=== PATIENT | female | born 1975 | race African-American/Black ===

== ENCOUNTER 2016-10-27 17:08 | Emergency (ER) | payer MEDICAID ==
[~2016-10-27] VITALS: Ht 165.1 cm; Wt 136.1 kg
[~2016-10-27 17:08] MED LIST: AMOX500C2 PO; CEFP500T4 PO; CEPH500C PO; CHLO473M4 MM; CLIN150C17 PO; HYDR-757 PO; IBP800T PO; TRM50T PO
[2016-10-27] MEDS ORDERED: BLOOD PRESSURE (17:37)
[2016-10-27] MEDS ORDERED: amLODIPine 5 MG (NORVASC) TAB PO ONE (18:15)
[2016-10-27] MEDS ORDERED: HYDROCHLOROTHIAZIDE 25 MG (HCTZ) TAB PO ONE (18:15)
--- NOTE | 2016-10-27 18:19 | Diagnostic Imaging Report ---
Indication: Right-sided facial droop and numbness, right-sided body numbness for 4 days. Comparison: None. Technique: Routine head CT was performed without contrast. Discussion: No intracranial hemorrhage, mass, midline shift, or hydrocephalus. The ventricles and sulci are normal size and configuration for age. The visualized orbits, paranasal sinuses, mastoid air cells, and calvarium are unremarkable. Impression: 1. Negative head CT. Dictated by: Dictated on workstation # [id number]
[2016-10-27 18:32] VITALS: BP 139/94
[2016-10-27 18:33] LABS: BASOPHILS % (AUTO) 0 % (0-10); EOSINOPHILS # (AUTO) 0.2 10^3/uL (0.0-0.3); EOSINOPHILS % (AUTO) 2 % (0-10); LYMPHOCYTES % (AUTO) 47 % (12-44); MEAN CORPUSCULAR HEMOGLOBIN 30 PG (25-34); MEAN CORPUSCULAR HGB CONC 34 G/DL (32-36); MEAN CORPUSCULAR VOLUME 89 FL (80-99); MONOCYTES # (AUTO) 0.5 X 10^3 (0.0-1.0); MONOCYTES % (AUTO) 4 % (0-12); NEUTROPHILS # (AUTO) 4.9 X 10^3 (1.8-7.8); NEUTROPHILS % (AUTO) 46 % (42-75); PLATELET COUNT 300 10^3/uL (130-400); RED BLOOD COUNT 4.56 10^6/uL (4.35-5.85); RED CELL DISTRIBUTION WIDTH 14.4 % (10.0-14.5); WHITE BLOOD COUNT 10.6 10^3/uL (4.3-11.0)
[2016-10-27 18:48] LABS: ALANINE AMINOTRANSFERASE 14 U/L (0-55); ANION GAP 10 MMOL/L (5-14); ASPARTATE AMINO TRANSFERASE 19 U/L (5-34); BILIRUBIN,TOTAL 0.2 MG/DL (0.1-1.0); BLOOD UREA NITROGEN 11 MG/DL (7-18); BUN/CREATININE RATIO 13; CALCIUM 9.1 MG/DL (8.5-10.1); CARBON DIOXIDE 28 MMOL/L (21-32); CHLORIDE 105 MMOL/L (98-107); CREATININE SERUM 0.84 MG/DL (0.60-1.30); GFR ESTIMATED > 60; GLUCOSE 91 MG/DL (70-105); MAGNESIUM 2.2 MG/DL (1.8-2.4); POTASSIUM 3.9 MMOL/L (3.6-5.0); SODIUM 143 MMOL/L (135-145); TOTAL PROTEIN 7.7 G/DL (6.4-8.2)
[2016-10-27 19:40] LABS: BILIRUBIN,URINE NEGATIVE (NEGATIVE); KETONES,URINE NEGATIVE (NEGATIVE); LEUKOCYTE ESTERASE ,URINE 1+ (NEGATIVE); NITRITE,URINE NEGATIVE (NEGATIVE); PH,URINE 7 (5-9); PROTEIN,URINE 1+ (NEGATIVE); UROBILINOGEN,URINE NORMAL (NORMAL)
[2016-10-27 19:50] LABS: SQUAMOUS EPITHELIAL CELL,UR 25-50 /HPF; WBC,URINE 0-2 /HPF
[2016-10-27] MEDS ORDERED: CHLO25TA22 PO (20:37)
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
[2016-10-27 20:44] VITALS: BP 152/108
== END 2016-10-27 20:43 | disposition home or self-care (01) ==
LOC: EDUNIT# 17:08 → ER 17:11
DX: R20.2 Paresthesia of skin (principal); R20.0 Anesthesia of skin; I16.0 Hypertensive urgency; F17.210 Nicotine dependence, cigarettes, uncomplicated; Z63.8 Other specified problems related to primary support group
CPT/HCPCS: 36415; 70450; 80053; 81000; 83735; 84443; 85025; 93005

== ENCOUNTER 2016-10-30 16:27 | Emergency (ER) | payer MEDICAID ==
[~2016-10-30] VITALS: Ht 165.1 cm; Wt 136.1 kg
[~2016-10-30 16:27] MED LIST changes: +BLOOD PRESSURE; +CHLO25TA22 PO
--- NOTE | 2016-10-30 18:31 | Diagnostic Imaging Report ---
INDICATION: Right leg pain. Right leg venous Doppler study was performed in the routine fashion with color flow Doppler and waveform analysis. FINDINGS: The right common femoral vein, superficial femoral vein, popliteal vein and visualized portion of the tibial veins show normal compressibility and venous flow patterns. There is normal augmentation. IMPRESSION: No evidence of deep vein thrombosis of the major veins of the right leg. Dictated by: Dictated on workstation # [id number]
[2016-10-30] MEDS ORDERED: KETOROLAC 30 MG/ML VIAL IVP STA (18:38)
[2016-10-30 18:43] LABS: BASOPHILS % (AUTO) 0 % (0-10); EOSINOPHILS % (AUTO) 0 % (0-10); LYMPHOCYTES # (AUTO) 2.8 X 10^3 (1.0-4.0); LYMPHOCYTES % (AUTO) 26 % (12-44); MEAN CORPUSCULAR HEMOGLOBIN 31 PG (25-34); MEAN CORPUSCULAR HGB CONC 34 G/DL (32-36); MEAN CORPUSCULAR VOLUME 89 FL (80-99); MEAN PLATELET VOLUME 10.2 FL (7.4-10.4); MONOCYTES # (AUTO) 0.3 X 10^3 (0.0-1.0); MONOCYTES % (AUTO) 3 % (0-12); NEUTROPHILS # (AUTO) 7.9 X 10^3 (1.8-7.8); NEUTROPHILS % (AUTO) 72 % (42-75); PLATELET COUNT 344 10^3/uL (130-400); RED BLOOD COUNT 4.76 10^6/uL (4.35-5.85); RED CELL DISTRIBUTION WIDTH 14.7 % (10.0-14.5)
[2016-10-30 18:50] LABS: PROTHROMBIN TIME PATIENT 12.6 SEC (12.2-14.7)
[2016-10-30 19:01] LABS: ALANINE AMINOTRANSFERASE 16 U/L (0-55); ALBUMIN 4.6 G/DL (3.2-4.5); ANION GAP 12 MMOL/L (5-14); ASPARTATE AMINO TRANSFERASE 15 U/L (5-34); BILIRUBIN,TOTAL 0.4 MG/DL (0.1-1.0); BLOOD UREA NITROGEN 12 MG/DL (7-18); BUN/CREATININE RATIO 13; CALCIUM 10.3 MG/DL (8.5-10.1); CARBON DIOXIDE 27 MMOL/L (21-32); CHLORIDE 100 MMOL/L (98-107); CREATININE SERUM 0.94 MG/DL (0.60-1.30); GFR ESTIMATED > 60; GLUCOSE 113 MG/DL (70-105); SODIUM 139 MMOL/L (135-145); TOTAL PROTEIN 8.8 G/DL (6.4-8.2)
--- NOTE | 2016-10-30 19:14 | ED Lower Extremity ---
General Chief Complaint: Lower Extremity Stated Complaint: RT LEG PAIN Nursing Triage Note: AMB TO ROOM C/O R LEG PAIN SINCE LAST NIGHT. Nursing Sepsis Screen: No Definite Risk Source: patient, old records History of Present Illness Time seen by provider: 18:03 Initial Comments PT STATES SHE STARTED HAVING PAIN IN RIGHT CALF LAST NIGHT, AND NOW IT HAS MOVED TO THE MEDIAL ASPECT OF HER RIGHT THIGH, AND IS NOT IN HER CALF ANYMORE NO SWELLING IN LEG NO RECENT INJURY--STATES IN YEARS PAST, SHE HAS HAD MULTIPLE FRACTURES TO THIS LEG--FEMUR, KNEE AND LOWER LEG HAVE ALL BEEN FRACTURED NO WOUNDS/SORES TO LEG NO CHEST PAIN OR SHORTNESS OF BREATH WAS SEEN HERE 10/27/16 WITH ELEVATED BP AND RIGHT SIDED TINGLING FOR 3 DAYS PRIOR PT SELF DC'D HER BP MEDICATIONS 2 WEEKS AGO PT WAS GIVEN RX FOR CHLORTHALIDONE AND IS ON ANOTHER UNKNOWN BP MEDICATION WELL PT SAW ALVARO SO THIS WEEK FOR FOLLOW UP . STATES RIGHT LEG STILL FEELS A LITTLE NUMB AND TINGLY, BUT IS NOT ANY DIFFERENT THAN IT HAS BEEN FOR THE LAST WEEK PCP; RAJ-K, ALVARO SO Allergies and Home Medications Allergies Coded Allergies: morphine (Unverified Allergy, Unknown, 03/09/15) Penicillins (Verified Adverse Reaction, Mild, 07/12/12) Home Medications Chlorthalidone 25 Mg Tablet, 25 MG PO DAILY, #14 Prescribed by: ALTAGRACIA BRANDON on 10/27/162036 [Blood Pressure] , (Reported) Constitutional: no symptoms reported Respiratory: no symptoms reported Cardiovascular: no symptoms reported Musculoskeletal: see HPI Skin: no symptoms reported Psychiatric/Neurological: See HPI Past Ntsmkyp-Xrvrxx-Uazhck Hx Patient Social History Alcohol Use: Denies Use Recreational Drug Use: No Smoking Status: Current Everyday Smoker Type Used: Cigarettes Recent Foreign Travel: No Contact w/Someone Who Travel: No Recent Infectious Disease Expo: No Recent Hopitalizations: No Surgeries HX Surgeries: Yes (SINUS SURGERY; HYST/BSO) Surgeries: Gallbladder, Hysterectomy, Oophorectomy, Orthopedic Respiratory Hx Respiratory Disorders: No Cardiovascular Hx Cardiac Disorders: Yes Cardiac Disorders: Hypertension Neurological Hx Neurological Disorders: No 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 System Hx 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 Disorders: No Sexually Transmitted Disease: No 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 Genitourinary Hx Genitourinary Disorders: No Gastrointestinal Hx Gastrointestinal Disorders: No Musculoskeletal Hx Musculoskeletal Disorders: Yes (MULTIPLE FRACTURES TO RIGHT LEG--FEMUR, KNEE , LOWER LEG) Musculoskeletal Disorders: Chronic Back Pain, Fractures Endocrine Hx Endocrine Disorders: Yes (MORBID OBESITY) HEENT HX ENT Disorders: Yes (CHRONIC DENTAL PAIN/CARIES/EXTENSIVE DECAY) Cancer Hx Cancer: No Psychosocial Hx Psychiatric Problems: No Integumentary HX Skin/Integumentary Disorder: No Blood Transfusions Hx Blood Disorders: No Family Medical History Significant Family History: No Pertinent Family Hx Physical Exam Vital Signs Vital Sign - Last 12Hours 10/30/16 10/30/16 17:13 19:30 Temp 97.8 Pulse 105 Resp 18 B/P (MAP) 144/124 Pulse Ox 0 Capillary Refill : Less Than 3 Seconds General Appearance: WD/WN, obese Neck: normal inspection Cardiovascular: regular rate, rhythm, no murmur Respiratory: normal breath sounds Hips: bilateral hip normal inspection Legs: left leg normal inspection, right leg soft tissue tenderness (MID TENDERNESS TO MID ASPECT OF RIGHT MEDIAL THIGH, NO SWELLING OR INDURATION OR CORDING OR WOUNDS/LESIONS OR SKIN DISCOLORATION. ) Knees: bilateral knee normal inspection Ankles: bilateral ankle normal inspection Feet: bilateral foot normal inspection Neurologic/Tendon: normal sensation, normal motor functions, normal tendon functions Neurologic/Psychiatric: market editor II-XII nml as tested, no motor/sensory deficits, alert, normal mood/affect, oriented x 3, other (AMBULATES WITHOUT DIFFICULTY) Skin: normal color, warm/dry Progress/Results/Core Measures Results/Orders Lab Results Laboratory Tests Test 10/30/16 18:22 Range/Units White Blood Count 11.0 4.3-11.0 10^3/uL Red Blood Count 4.76 4.35-5.85 10^6/uL Hemoglobin 14.5 11.5-16.0 G/DL Hematocrit 42 35-52 % Mean Corpuscular Volume 89 80-99 FL Mean Corpuscular Hemoglobin 31 25-34 PG Mean Corpuscular Hemoglobin Concent 34 32-36 G/DL Red Cell Distribution Width 14.7 H 10.0-14.5 % Platelet Count 344 130-400 10^3/uL Mean Platelet Volume 10.2 7.4-10.4 FL Neutrophils (%) (Auto) 72 42-75 % Lymphocytes (%) (Auto) 26 12-44 % Monocytes (%) (Auto) 3 0-12 % Eosinophils (%) (Auto) 0 0-10 % Basophils (%) (Auto) 0 0-10 % Neutrophils # (Auto) 7.9 H 1.8-7.8 X 10^3 Lymphocytes # (Auto) 2.8 1.0-4.0 X 10^3 Monocytes # (Auto) 0.3 0.0-1.0 X 10^3 Eosinophils # (Auto) 0.0 0.0-0.3 10^3/uL Basophils # (Auto) 0.0 0.0-0.1 10^3/uL Prothrombin Time 12.6 12.2-14.7 SEC INR Comment 1.0 0.8-1.4 Activated Partial Thromboplast Time 30 24-35 SEC Sodium Level 139 135-145 MMOL/L Potassium Level 4.0 3.6-5.0 MMOL/L Chloride Level 100 98-107 MMOL/L Carbon Dioxide Level 27 21-32 MMOL/L Anion Gap 12 5-14 MMOL/L Blood Urea Nitrogen 12 7-18 MG/DL Creatinine 0.94 0.60-1.30 MG/DL Estimat Glomerular Filtration Rate > 60 BUN/Creatinine Ratio 13 Glucose Level 113 H 70-105 MG/DL Calcium Level 10.3 H 8.5-10.1 MG/DL Total Bilirubin 0.4 0.1-1.0 MG/DL Aspartate Amino Transf (AST/SGOT) 15 5-34 U/L Alanine Aminotransferase (ALT/SGPT) 16 0-55 U/L Alkaline Phosphatase 93 40-136 U/L Total Protein 8.8 H 6.4-8.2 G/DL Albumin 4.6 H 3.2-4.5 G/DL My Orders Orders - BOSTON HERNANDEZ DO Saline Lock/Iv-Start (10/30/16 18:12) Cbc With Automated Diff (10/30/16 18:12) Comprehensive Metabolic Panel (10/30/16 18:12) Protime With Inr (10/30/16 18:12) Partial Thromboplastin Time (10/30/16 18:12) Us Venous Lower Ext Rt (10/30/16 18:12) Ketorolac Injection (Toradol Injection) (10/30/16 18:38) Vital Signs/I&O Vital Sign - Last 12Hours 10/30/16 10/30/16 17:13 19:30 Temp 97.8 Pulse 105 0 Resp 18 0 B/P (MAP) 144/124 Pulse Ox 0 Blood Pressure Mean: 131 Diagnostic Imaging Comments ULTRASOUND/VENOUS DOPPLER RIGHT LEG--NO DVT, PER RADIOLOGIST REPORT @ 1833 Reviewed: Reviewed by Me Departure Impression Impression: Primary Impression: RIGHT MEDIAL THIGH PAIN Disposition: HOME, SELF-CARE Condition: Stable Departure-Patient Inst. Referrals: [facility] (PCP/Family) Primary Care Physician Patient Instructions: Muscle Strain (DC) Add. Discharge Instructions: ALTERNATE ICE AND HEAT TO SORE AREA AT 20 MINUTE INTERVALS ACTIVITIES TOLERATED TYLENOL AND MOTRIN NEEDED FOR PAIN FOLLOW UP WITH YOUR DR IN 3-4 DAYS IF NO BETTER All discharge instructions reviewed with patient and/or family. Voiced understanding. Images Extremities-Lower 1 - Mild, Tenderness BOSTON HERNANDEZ DO Oct 30, 2016 19:14
[2016-10-30 19:30] VITALS: BP 0/0
== END 2016-10-30 19:30 | disposition home or self-care (01) ==
LOC: EDUNIT# 16:27 → ER 16:28
DX: M79.651 Pain in right thigh (principal); F17.210 Nicotine dependence, cigarettes, uncomplicated
CPT/HCPCS: 36415; 80053; 85025; 85610; 85730; 96374

== ENCOUNTER → 2017-01-21 | Outpatient (CLI) | payer MEDICAID | LOC: CARD 09:38 | PROVIDERS: ATTEND Physician Assistant | DX: R07.89 Other chest pain (principal) | CPT/HCPCS: 93017 ==

== ENCOUNTER → 2017-01-21 | Outpatient (CLI) | payer MEDICAID ==
[~2017-01-21] MED LIST changes: +DICY10CA12; +METF500T8; +SERT50TA9; +TRAZ-28
--- NOTE | 2017-01-21 11:42 | Diagnostic Imaging Report ---
PROCEDURE: MR imaging of the brain without contrast. TECHNIQUE: Multiplanar, multisequence MR imaging of the brain was performed without contrast. INDICATION: Right-sided numbness and headache. High blood pressure. FINDINGS: There is slight loss of signal in the anterior aspect of the images related to permanent head extension that prevented optimal positioning of the anterior component of the coil. There is no diffusion restriction to suggest an acute infarct. There is no significant signal abnormality seen in the brain parenchyma. The pituitary gland is small in size with the sella filled with CSF without significant expansion, however. There is no suprasellar or pineal region mass. The central vascular flow-voids appear grossly unremarkable. The internal auditory canals and inner ear structures appear unremarkable. IMPRESSION: Unremarkable exam. Dictated by: Dictated on workstation # [id number]
== END ==
LOC: RAD 09:35
PROVIDERS: ATTEND Nurse Practitioner Family
DX: R53.1 Weakness (principal)
CPT/HCPCS: 70551

== ENCOUNTER → 2017-02-26 | Outpatient (CLI) | payer MEDICAID ==
[~2017-02-26] MED LIST changes: -DICY10CA12; -METF500T8; -SERT50TA9; -TRAZ-28
== END ==
LOC: PREOP 05:48
PROVIDERS: ATTEND Surgery
DX: Z01.818 Encounter for other preprocedural examination (principal); R11.2 Nausea with vomiting, unspecified; R19.7 Diarrhea, unspecified

== ENCOUNTER 2017-04-09 07:11 | Emergency (ER) | payer MEDICAID ==
[~2017-04-09] VITALS: Ht 165.1 cm; Wt 122.5 kg
--- NOTE | 2017-04-09 08:44 | ED Fall/Injury ---
General Chief Complaint: Lower Extremity Stated Complaint: POSS BROKEN HEEL Nursing Triage Note: PT REPORTS SLIPPING IN BATHTUB YESTERDAY. SHE IS C/O R HEEL PAIN. Source: patient Exam Limitations: no limitations History of Present Illness Time seen by provider: 08:26 Initial Comments This 41-year-old woman presents to the emergency room after having a fall injury in the bathtub last night. She has had chronic problems with her right knee which she states "gave out" on her while in the tub. She fell striking her left hip and injuring her right ankle and heel. Her right foot slipped up striking a metal railing. She has been ambulatory but tries to walk on her toes because of pain in the right heel. She denies any head or neck injury. The only injury she wishes to have evaluated today is the right foot and ankle. She has never had the right knee evaluated for her chronic pain and would like that x-rayed as well. Allergies and Home Medications Allergies Coded Allergies: morphine (Unverified Allergy, Unknown, 03/09/15) Penicillins (Verified Adverse Reaction, Mild, 07/12/12) Home Medications Chlorthalidone 25 Mg Tablet, 25 MG PO DAILY, #14 Prescribed by: ALTAGRACIA BRANDON on 10/27/162036 [Blood Pressure] , (Reported) Constitutional: no symptoms reported Eyes: No Symptoms Reported Ears, Nose, Mouth, Throat: no symptoms reported Respiratory: no symptoms reported Cardiovascular: no symptoms reported Gastrointestinal: no symptoms reported Genitourinary: no symptoms reported Musculoskeletal: see HPI Skin: no symptoms reported Psychiatric/Neurological: No Symptoms Reported Past Kzdtbok-Teadld-Idckfq Hx Patient Social History Alcohol Use: Denies Use Recreational Drug Use: No Smoking Status: Current Everyday Smoker Type Used: Cigarettes 2nd Hand Smoke Exposure: Yes Recent Foreign Travel: No Contact w/Someone Who Travel: No Recent Infectious Disease Expo: No Recent Hopitalizations: No Physical Abuse: No Sexual Abuse: No Surgeries History of Surgeries: Yes (SINUS SURGERY; HYST/BSO) Surgeries: Gallbladder, Hysterectomy, Oophorectomy, Orthopedic Respiratory History of Respiratory Disorde: No Cardiovascular History of Cardiac Disorders: Yes Cardiac Disorders: Hypertension Neurological History of Neurological Disord: Yes Neurological Disorders: TIA 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 System : No Hx 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 Disorders: No Sexually Transmitted Disease: No 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 Genitourinary History of Genitourinary Disor: No Gastrointestinal History of Gastrointestinal Di: No Musculoskeletal History of Musculoskeletal Dis: Yes (MULTIPLE FRACTURES TO RIGHT LEG--FEMUR, KNEE, LOWER LEG) Musculoskeletal Disorders: Chronic Back Pain, Fractures Endocrine History of Endocrine Disorders: Yes (MORBID OBESITY) HEENT History of HEENT Disorders: No Cancer History of Cancer: No Psychosocial History of Psychiatric Problem: No Suicide Risk Score: 0 Integumentary History of Skin or Integumenta: No Blood Transfusions History of Blood Disorders: No Family Medical History Significant Family History: No Pertinent Family Hx Physical Exam Vital Signs Vital Sign - Last 12Hours 04/09/17 08:00 Temp 98.1 Pulse 85 Resp 16 B/P (MAP) 142/80 Pulse Ox 97 O2 Delivery Room Air Capillary Refill : Less Than 3 Seconds General Appearance: WD/WN, no apparent distress HEENT: PERRL/EOMI, normal ENT inspection Cardiovascular: regular rate, rhythm, no edema, no murmur Respiratory: lungs clear, normal breath sounds, no respiratory distress, no accessory muscle use Extremities: other (tenderness to palpation over the right lateral malleolus and over the right calcaneus. Also mild tenderness over the right medial knee. Pedal pulse intact. Sensation, movement, and capillary refill intact distally.) Neurologic/Psychiatric: psychiatric tech II-XII nml as tested, no motor/sensory deficits, alert, normal mood/affect, oriented x 3 Skin: normal color, warm/dry Glo Coma Score Best Eye Response: (4) Open Spontaneously Best Verbal Response: (5) Oriented Best Motor Response: (6) Obeys Commands Glo Total: 15 Progress/Results/Core Measures Results/Orders My Orders Orders - ALTAGRACIA STINSON MD Knee, Right, 3 Views (04/09/17 08:26) Foot, Right, 3 View (04/09/17 08:26) Ankle, Right, 3 Views (04/09/17 08:26) Vital Signs/I&O Vital Sign - Last 12Hours 04/09/17 04/09/17 08:00 09:37 Temp 98.1 98.1 Pulse 85 85 Resp 16 16 B/P (MAP) 142/80 Pulse Ox 97 97 O2 Delivery Room Air Blood Pressure Mean: 100 Progress Note : Progress Note In addition to treating acute ankle sprain, patient was advised to seek follow- up for the recurrent right knee problems. She may have soft tissue injury that cannot be identified on x-ray and she may benefit from MRI for further evaluation. Patient expressed understanding. Diagnostic Imaging Diagonstic Imaging: Xray Plain Films/CT/US/NM/MRI: ankle Comments Right ankle x-ray reviewed by me and report reviewed. See report below: NAME: KAILYN AYALA [facility] REC#: [id number] PT STATUS: [facility] ER : 1975 PHYSICIAN: ALTAGRACIA STINSON MD ADMIT DATE: 04/09/17/ER Signed Date of Exam: 04/09/17 ANKLE, RIGHT, 3 VIEWS Three views of the right ankle. INDICATION: Right ankle pain after injury. FINDINGS: No fracture, dislocation or radiopaque foreign body. Ankle mortise is normal in configuration. IMPRESSION: Unremarkable exam. Dictated by: Dictated on workstation # [id number] Dict: 04/09/17 0857 Trans: 04/09/17 1256 Interpreted by: JOSE CHUN MD Electronically signed by: JOSE CHUN MD 04/09/17 1256 Diagonstic Imaging: Xray Plain Films/CT/US/NM/MRI: other (right foot) Comments Right foot x-ray viewed by me and report reviewed. See report below: NAME: KAILYN AYALA [facility] REC#: [id number] PT STATUS: [facility] ER : 1975 PHYSICIAN: ALTAGRACIA STINSON MD ADMIT DATE: 04/09/17/ER Signed Date of Exam: 04/09/17 FOOT, RIGHT, 3 VIEW INDICATION: Right foot injury with pain. AP, oblique and lateral views of the right foot are obtained. FINDINGS: There is minimal plantar calcaneal spurring. No acute fracture or dislocation is identified. No abnormal lytic or sclerotic focus is seen, and there is no radiopaque foreign body. IMPRESSION: No acute abnormality. Dictated by: Dictated on workstation # [id number] Dict: 04/09/17 0857 Trans: 04/09/17 1206 Interpreted by: FERNANDA HDZ MD Electronically signed by: FERNANDA HDZ MD 04/09/17 1206 Diagonstic Imaging: Xray Plain Films/CT/US/NM/MRI: knee Comments Right knee x-ray viewed by me and report reviewed. See report below: NAME: KAILYN AYALA [facility] REC#: [id number] PT STATUS: [facility] ER : 1975 PHYSICIAN: ALTAGRACIA STINSON MD ADMIT DATE: 04/09/17/ER Signed Date of Exam: 04/09/17 KNEE, RIGHT, 3 VIEWS INDICATION: Fall with right knee pain AP, oblique and lateral views of the right knee are obtained. No fracture or malalignment is identified. There is no abnormal lytic or sclerotic focus. Mild increased density seen in the suprapatellar region which may be due to joint fluid. IMPRESSION: There maybe mild joint fluid or hemarthrosis. No acute osseous abnormalities identified. Dictated by: Dictated on workstation # [id number] Dict: 04/09/17 0857 Trans: 04/09/17 1206 Interpreted by: FERNANDA HDZ MD Electronically signed by: FERNANDA HDZ MD 04/09/17 1206 Departure Impression Impression: Primary Impression: Contusion of right heel Qualified Codes: S90.31XA - Contusion of right foot, initial encounter Additional Impressions: Right ankle sprain Qualified Codes: S93.401A - Sprain of unspecified ligament of right ankle, initial encounter Right knee pain Qualified Codes: M25.561 - Pain in right knee Fall on same level from slipping Qualified Codes: W01.0XXA - Fall on same level from slipping, tripping and stumbling without subsequent striking against object, initial encounter Disposition: 01 HOME, SELF-CARE Condition: Stable Departure-Patient Inst. Decision time for Depature: 09:10 Referrals: [facility] (PCP/Family) Primary Care Physician Patient Instructions: Ankle Sprain (DC), Contusion (DC) Add. Discharge Instructions: You appear to have an ankle sprain and a bruised heel. You may use ibuprofen up to 600 mg every 6 hours as needed for pain. Add Tylenol (acetaminophen) up to 1000 mg every 6 hours as needed for additional pain relief. Elevation, rest , and icing in 20 minute intervals may be helpful for pain and swelling. An ankle brace or Ronen wrap of the ankle is suggested for the next several weeks to prevent reinjury. Return to care if you're not recovering as expected or you if you have any further complications. Gradually advance level of activity as pain allows. All discharge instructions reviewed with patient and/or family. Voiced understanding. ALTAGRACIA STINSON MD Apr 09, 2017 08:44
--- NOTE | 2017-04-09 08:59 | Diagnostic Imaging Report ---
INDICATION: Right foot injury with pain. AP, oblique and lateral views of the right foot are obtained. FINDINGS: There is minimal plantar calcaneal spurring. No acute fracture or dislocation is identified. No abnormal lytic or sclerotic focus is seen, and there is no radiopaque foreign body. IMPRESSION: No acute abnormality. Dictated by: Dictated on workstation # [id number]
--- NOTE | 2017-04-09 09:03 | Diagnostic Imaging Report ---
INDICATION: Fall with right knee pain AP, oblique and lateral views of the right knee are obtained. No fracture or malalignment is identified. There is no abnormal lytic or sclerotic focus. Mild increased density seen in the suprapatellar region which may be due to joint fluid. IMPRESSION: There maybe mild joint fluid or hemarthrosis. No acute osseous abnormalities identified. Dictated by: Dictated on workstation # [id number]
--- NOTE | 2017-04-09 09:07 | Diagnostic Imaging Report ---
Three views of the right ankle. INDICATION: Right ankle pain after injury. FINDINGS: No fracture, dislocation or radiopaque foreign body. Ankle mortise is normal in configuration. IMPRESSION: Unremarkable exam. Dictated by: Dictated on workstation # [id number]
[2017-04-09 09:37] VITALS: BP 142/80
== END 2017-04-09 09:37 | disposition home or self-care (01) ==
LOC: EDUNIT# 07:11 → ER 07:15
DX: S93.401A Sprain of unspecified ligament of right ankle, initial encounter (principal); S90.31XA Contusion of right foot, initial encounter; I10 Essential (primary) hypertension; E66.01 Morbid (severe) obesity due to excess calories; F17.210 Nicotine dependence, cigarettes, uncomplicated; Z90.710 Acquired absence of both cervix and uterus; Z86.73 Personal history of transient ischemic attack (TIA), and cerebral infarction without residual deficits; W01.0XXA Fall on same level from slipping, tripping and stumbling without subsequent striking against object, initial encounter; Y92.002 Bathroom of unspecified non-institutional (private) residence as the place of occurrence of the external cause
CPT/HCPCS: 73562; 73610; 73630; 99283

== ENCOUNTER 2017-04-29 18:44 | Emergency (ER) | payer MEDICAID ==
[~2017-04-29] VITALS: Ht 165.1 cm; Wt 122.5 kg
[2017-04-29] MEDS ORDERED: SERT50TA9 (18:51)
[2017-04-29] MEDS ORDERED: DICY10CA12 (18:51)
[2017-04-29] MEDS ORDERED: METF500T8 (18:51)
[2017-04-29] MEDS ORDERED: TRAZ-28 (18:51)
[2017-04-29] MEDS ORDERED: ASPIRIN 81 MG CHEW (CHILDREN'S ASA) PO ONE (19:00)
[2017-04-29 19:03] LABS: BASOPHILS % (AUTO) 0 % (0-10); EOSINOPHILS # (AUTO) 0.2 10^3/uL (0.0-0.3); EOSINOPHILS % (AUTO) 2 % (0-10); LYMPHOCYTES # (AUTO) 5.4 X 10^3 (1.0-4.0); LYMPHOCYTES % (AUTO) 40 % (12-44); MEAN CORPUSCULAR HEMOGLOBIN 31 PG (25-34); MEAN CORPUSCULAR HGB CONC 34 G/DL (32-36); MEAN CORPUSCULAR VOLUME 89 FL (80-99); MEAN PLATELET VOLUME 10.9 FL (7.4-10.4); MONOCYTES # (AUTO) 1.1 X 10^3 (0.0-1.0); MONOCYTES % (AUTO) 8 % (0-12); NEUTROPHILS % (AUTO) 51 % (42-75); PLATELET COUNT 332 10^3/uL (130-400); RED BLOOD COUNT 4.35 10^6/uL (4.35-5.85); RED CELL DISTRIBUTION WIDTH 13.6 % (10.0-14.5); WHITE BLOOD COUNT 13.7 10^3/uL (4.3-11.0)
[2017-04-29 19:15] LABS: PROTHROMBIN TIME PATIENT 12.9 SEC (12.2-14.7)
--- NOTE | 2017-04-29 19:19 | Diagnostic Imaging Report ---
INDICATION: Severe chest pain for two days. COMPARISON STUDY: None. FINDINGS: Frontal and lateral views of the chest demonstrate the lungs to be clear. Heart, mediastinum, pulmonary vascularity, and visualized bony thorax are normal. IMPRESSION: Normal chest. Dictated by: Dictated on workstation # [id number]
[2017-04-29 19:24] LABS: ALANINE AMINOTRANSFERASE 20 U/L (0-55); ALBUMIN 4.5 GM/DL (3.2-4.5); ANION GAP 12 MMOL/L (5-14); ASPARTATE AMINO TRANSFERASE 28 U/L (5-34); BILIRUBIN,TOTAL 0.3 MG/DL (0.1-1.0); BLOOD UREA NITROGEN 10 MG/DL (7-18); BUN/CREATININE RATIO 7; CALCIUM 10.1 MG/DL (8.5-10.1); CARBON DIOXIDE 31 MMOL/L (21-32); CHLORIDE 95 MMOL/L (98-107); GFR ESTIMATED 50; GLUCOSE 93 MG/DL (70-105); MAGNESIUM 1.9 MG/DL (1.8-2.4); SODIUM 138 MMOL/L (135-145); TOTAL PROTEIN 8.9 GM/DL (6.4-8.2)
[2017-04-29 19:30] LABS: MYOGLOBIN SERUM 234.2 NG/ML (10.0-92.0)
[2017-04-29] MEDS ORDERED: NS IV 1000 ML 1,000 ML IV ONE (19:51)
[2017-04-29] MEDS ORDERED: KCL 10 MEQ TAB (MICRO K) PO ONE (20:00)
--- NOTE | 2017-04-29 20:50 | ED Chest Pain ---
General Chief Complaint: Chest Pain Stated Complaint: CP Nursing Triage Note: patient reports chest pain/L shoulder pain for a few days, patient reports that she thought it was muscular at first, but today patient reports the pain was severe and went into back, patient reports it hurts to breathe/talk/swallow. Nursing Sepsis Screen: No Definite Risk Allergies and Home Medications Allergies Coded Allergies: morphine (Unverified Allergy, Unknown, 03/09/15) Penicillins (Verified Adverse Reaction, Mild, 07/12/12) Home Medications Dicyclomine HCl 10 Mg Capsule, (Reported) Metformin HCl 500 Mg Tab.er.24h, (Reported) Sertraline HCl 50 Mg Tablet, (Reported) Trazodone HCl 50 Mg Tablet, (Reported) Past Jnvbwwj-Fxilzk-Vvdcxu Hx Patient Social History Alcohol Use: Denies Use Recreational Drug Use: No Smoking Status: Current Everyday Smoker Type Used: Cigarettes 2nd Hand Smoke Exposure: Yes Recent Foreign Travel: No Contact w/Someone Who Travel: No Recent Infectious Disease Expo: No Recent Hopitalizations: No Surgeries History of Surgeries: Yes (SINUS SURGERY; HYST/BSO) Surgeries: Gallbladder, Hysterectomy, Oophorectomy, Orthopedic Respiratory History of Respiratory Disorde: No Cardiovascular History of Cardiac Disorders: Yes Cardiac Disorders: Hypertension Neurological History of Neurological Disord: Yes Neurological Disorders: TIA 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 System Hx 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 Disorders: No 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 Genitourinary History of Genitourinary Disor: No Gastrointestinal History of Gastrointestinal Di: No Musculoskeletal History of Musculoskeletal Dis: Yes (MULTIPLE FRACTURES TO RIGHT LEG--FEMUR, KNEE, LOWER LEG) Musculoskeletal Disorders: Chronic Back Pain, Fractures Endocrine History of Endocrine Disorders: Yes (MORBID OBESITY) HEENT History of HEENT Disorders: No Cancer History of Cancer: No Psychosocial History of Psychiatric Problem: No Integumentary History of Skin or Integumenta: No Blood Transfusions History of Blood Disorders: No Family Medical History Significant Family History: No Pertinent Family Hx Physical Exam Vital Signs Vital Sign - Last 12Hours 04/29/17 18:47 Temp 98.7 Pulse 86 Resp 18 Pulse Ox 99 Capillary Refill : Less Than 3 Seconds Progress/Results/Core Measures Results/Orders Lab Results Laboratory Tests Test 04/29/17 18:50 Range/Units White Blood Count 13.7 H 4.3-11.0 10^3/uL Red Blood Count 4.35 4.35-5.85 10^6/uL Hemoglobin 13.3 11.5-16.0 G/DL Hematocrit 39 35-52 % Mean Corpuscular Volume 89 80-99 FL Mean Corpuscular Hemoglobin 31 25-34 PG Mean Corpuscular Hemoglobin Concent 34 32-36 G/DL Red Cell Distribution Width 13.6 10.0-14.5 % Platelet Count 332 130-400 10^3/uL Mean Platelet Volume 10.9 H 7.4-10.4 FL Neutrophils (%) (Auto) 51 42-75 % Lymphocytes (%) (Auto) 40 12-44 % Monocytes (%) (Auto) 8 0-12 % Eosinophils (%) (Auto) 2 0-10 % Basophils (%) (Auto) 0 0-10 % Neutrophils # (Auto) 7.0 1.8-7.8 X 10^3 Lymphocytes # (Auto) 5.4 H 1.0-4.0 X 10^3 Monocytes # (Auto) 1.1 H 0.0-1.0 X 10^3 Eosinophils # (Auto) 0.2 0.0-0.3 10^3/uL Basophils # (Auto) 0.0 0.0-0.1 10^3/uL Prothrombin Time 12.9 12.2-14.7 SEC INR Comment 1.0 0.8-1.4 Activated Partial Thromboplast Time 33 24-35 SEC Sodium Level 138 135-145 MMOL/L Potassium Level 3.0 L 3.6-5.0 MMOL/L Chloride Level 95 L 98-107 MMOL/L Carbon Dioxide Level 31 21-32 MMOL/L Anion Gap 12 5-14 MMOL/L Blood Urea Nitrogen 10 7-18 MG/DL Creatinine 1.40 H 0.60-1.30 MG/DL Estimat Glomerular Filtration Rate 50 BUN/Creatinine Ratio 7 Glucose Level 93 70-105 MG/DL Calcium Level 10.1 8.5-10.1 MG/DL Magnesium Level 1.9 1.8-2.4 MG/DL Total Bilirubin 0.3 0.1-1.0 MG/DL Aspartate Amino Transf (AST/SGOT) 28 5-34 U/L Alanine Aminotransferase (ALT/SGPT) 20 0-55 U/L Alkaline Phosphatase 110 40-136 U/L Myoglobin 234.2 H 10.0-92.0 NG/ML Troponin I < 0.30 <0.30 NG/ML Total Protein 8.9 H 6.4-8.2 GM/DL Albumin 4.5 3.2-4.5 GM/DL My Orders Orders - ALTAGRACIA STINSON MD Chest Pa/Lat (2 View) (04/29/17 18:54) Cbc With Automated Diff (04/29/17 18:54) Magnesium (04/29/17 18:54) Ekg Tracing (04/29/17 18:54) Cardiac Profile 1 (04/29/17 18:54) Comprehensive Metabolic Panel (04/29/17 18:54) Myoglobin Serum (04/29/17 18:54) Protime With Inr (04/29/17 18:54) Partial Thromboplastin Time (04/29/17 18:54) O2 (04/29/17 18:54) Monitor-Rhythm Ecg Trace Only (04/29/17 18:54) Lipid Panel (04/30/17 06:00) Aspirin Chewable Tablet (Baby Aspirin Ch (04/29/17 19:00) Saline Lock/Iv-Start (04/29/17 18:54) Potassium Chloride (Tablet) (Klor Con Ta (04/29/17 20:00) Ns Iv 1000 Ml (Sodium Chloride 0.9%) (04/29/17 19:51) Medications Given in ED Current Medications Medications Dose Ordered Sig/Dhara Route Start Time Stop Time Status Last Admin Dose Admin Aspirin 324 mg ONCE ONCE PO 04/29/17 19:00 04/29/17 19:01 DC 04/29/17 19:57 324 MG Potassium Chloride 40 meq ONCE ONCE PO 04/29/17 20:00 04/29/17 20:01 DC 04/29/17 19:57 40 MEQ Sodium Chloride 1,000 ml @ 0 mls/hr Q0M ONCE IV 04/29/17 19:51 04/29/17 19:53 DC 04/29/17 19:57 0 MLS/HR Vital Signs/I&O Vital Sign - Last 12Hours 04/29/17 18:47 Temp 98.7 Pulse 86 Resp 18 B/P (MAP) Pulse Ox 99 ECG Initial ECG Impression Date: Apr 29, 2017 Initial ECG Impression Time: 18:46 Initial ECG Rate: 86 Initial ECG Rhythm: Normal Sinus Initial ECG Intervals: Normal Initial ECG Impression: Normal Comment Normal sinus rhythm with no ST elevation or depression. No abnormal intervals or axis deviation. Diagnostic Imaging Diagonstic Imaging: Xray Plain Films/CT/US/NM/MRI: chest Comments Chest x-ray viewed by me and report reviewed. See report below: NAME: KAILYN AYALA [facility] REC#: [id number] PT STATUS: REG ER : 1975 PHYSICIAN: ALTAGRACIA STINSON MD ADMIT DATE: 04/29/17/ER Signed Date of Exam:04/29/17 CHEST PA/LAT (2 VIEW) INDICATION: Severe chest pain for two days. COMPARISON STUDY: None. FINDINGS: Frontal and lateral views of the chest demonstrate the lungs to be clear. Heart, mediastinum, pulmonary vascularity, and visualized bony thorax are normal. IMPRESSION: Normal chest. Dictated by: Dictated on workstation # [id number] Dict: 04/29/171914 Trans: 04/29/171926 AS6 [id number] Interpreted by: HAYDEN LESLIE MD Electronically signed by: HAYDEN LESLIE MD 04/29/171926 Departure Impression Impression: Primary Impression: Chest wall pain Additional Impressions: Hypokalemia Acute renal insufficiency Disposition: 01 HOME, SELF-CARE Condition: Improved Departure-Patient Inst. Decision time for Depature: 21:15 Referrals: [facility] (PCP/Family) Primary Care Physician Patient Instructions: Chest Pain That Is Not Caused by the Heart (DC), Hypokalemia Add. Discharge Instructions: Drink plenty of clear liquids. You may continue taking ibuprofen but no more than 800 mg every 8 hours. You may add Tylenol (acetaminophen) up to 1000 mg every 6 hours as needed for additional pain relief. Consume some food and beverages high in potassium over the next few days to help improve your potassium level. This would include citrus fruits and juices, bananas, yogurt, etc. Your chlorthalidone may be affecting your potassium levels. Please contact your primary care provider to discuss changing to a different medication. All discharge instructions reviewed with patient and/or family. Voiced understanding. Copy Copies To 1: ARRINGTON,ALTAGRACIA IRBY MD Apr 29, 2017 20:50
[2017-04-29 21:39] VITALS: BP 134/98
== END 2017-04-29 21:39 | disposition home or self-care (01) ==
LOC: EDUNIT# 18:44 → ER 18:45
DX: R07.89 Other chest pain (principal); N17.9 Acute kidney failure, unspecified; E87.6 Hypokalemia; I10 Essential (primary) hypertension; E66.01 Morbid (severe) obesity due to excess calories; F17.210 Nicotine dependence, cigarettes, uncomplicated; Z86.73 Personal history of transient ischemic attack (TIA), and cerebral infarction without residual deficits; Z68.41 Body mass index [BMI] 40.0-44.9, adult; Z90.710 Acquired absence of both cervix and uterus; Z79.84 Long term (current) use of oral hypoglycemic drugs
CPT/HCPCS: 36415; 71020; 80053; 83735; 83874; 84484; 85025; 85610; 85730; 93005; 93041

== ENCOUNTER 2019-03-14 17:29 | Emergency (ER) | payer MEDICAID ==
[~2019-03-14] VITALS: Ht 165.1 cm; Wt 122.5 kg
[~2019-03-14 17:29] MED LIST changes: +DICY10CA12; +HYDR-4226 PO; -HYDR-757 PO; +METF500T8; +SERT50TA9; +TRAZ-222
--- NOTE | 2019-03-14 18:08 | ED Upper Extremity ---
General Chief Complaint: Upper Extremity Stated Complaint: L PINKY / HAND PAIN Nursing Triage Note: PT STATES LAST NIGHT SHE HIT HER DOG FOR DISCIPLINE AND INJURED HER RIGHT PINKY FINGER. PT STATES PAIN AND TOOK IBUPROFEN AT 1600. NO OBVIOUS SIGNS OF DEFORMITY NOTED. PT ABLE TO BEND PINKY. NEURO TO FINGER AND HAND INTACT. Nursing Sepsis Screen: No Definite Risk History of Present Illness Date Seen by Provider: Mar 14, 2019 Time Seen by Provider: 17:40 Initial Comments 43-year-old -[place] female presents for right fifth finger pain. She reports disciplining her dog yesterday when it attacked her cat, she hit the dog and it injured her right fifth finger. She's been taking ibuprofen with minimal improvement in her symptoms. Onset: yesterday Pain/Injury Location: right 5th finger Method of Injury: direct blow Modifying Factors: Improves With Rest Allergies and Home Medications Allergies Coded Allergies: morphine (Unverified Allergy, Unknown, 03/09/15) Penicillins (Verified Adverse Reaction, Mild, 07/12/12) Patient Home Medication List Home Medication List Reviewed: Yes Review of Systems Constitutional: no symptoms reported, see HPI Musculoskeletal: see HPI, joint pain (right fifth finger) All Other Systems Reviewed Negative Unless Noted: Yes Past Oblkwje-Mecdgg-Vmfboe Hx Past Med/Social Hx: Reviewed Nursing Past Med/Soc Hx Patient Social History Alcohol Use: Denies Use Recreational Drug Use: No Type Used: Cigarettes 2nd Hand Smoke Exposure: Yes Recent Foreign Travel: No Contact w/Someone Who Travel: No Recent Infectious Disease Expo: No Recent Hopitalizations: No Physical Abuse: No Sexual Abuse: No Mistreated: No Fear: No Past Medical History Surgeries: Yes (SINUS SURGERY; HYST/BSO) Gallbladder, Hysterectomy, Oophorectomy, Orthopedic Respiratory: No Cardiac: Yes Hypertension Neurological: Yes TIA 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 Disorders: 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 oz. 122.475359nc; 34.94 BMI Method:Stated General Appearance: WD/WN, no apparent distress Cardiovascular: normal peripheral pulses, regular rate, rhythm, no murmur Respiratory: chest non-tender, lungs clear, normal breath sounds Wrist: Yes normal inspection, Yes non-tender, Yes no evidence of injury, Yes normal ROM Hand: normal inspection, no evidence of injury, Right, bone tenderness (right fifth finger), limited ROM (full resisted flexion and extension at the MCP PIP and DIP joints of the right fifth finger.), soft tissue tenderness, swelling (trace) Neurologic/Tendon: normal sensation, normal motor functions, normal tendon functions Neurologic/Psychiatric: no motor/sensory deficits, alert, normal mood/affect, o riented x 3 Skin: normal color, warm/dry Progress/Results/Core Measures Results/Orders My Orders Orders - ADRIAN SUNSHINE Finger(S) (03/14/19 17:53) Vital Signs/I&O 03/14/19 03/14/19 17:35 18:27 Temp 97.6 97.6 Pulse 97 97 Resp 18 18 B/P (MAP) 136/73 (94) 136/73 (94) Pulse Ox 98 98 O2 Delivery Room Air Blood Pressure Mean: 94 Progress Progress Note : Time: 17:40 Progress Note Patient seen and evaluated, we'll obtain x-rays of the right fifth finger and reevaluate. Ice pack in place. 1809 x-rays negative for acute injuries. Fourth and fifth fingers on the right hand lori taped. Discharge instructions and return precautions reviewed. Departure Impression Primary Impression: Contusion of finger of right hand Qualified Codes: S60.051A - Contusion of right little finger without damage to nail, initial encounter Disposition: HOME, SELF-CARE Condition: Improved Departure-Patient Inst. Decision time for Depature: 18:20 Referrals: [facility] (PCP/Family) Primary Care Physician Patient Instructions: Glynn Finger (DC) Add. Discharge Instructions: Lori tape fourth and fifth fingers on the right hand. Alternate between Tylenol 650 mg and ibuprofen 600 mg every 4 hours. Ice to right fifth finger 20 minutes every 2 hours while awake. Progress activity as comfortable. Follow-up with your primary care provider if symptoms are not improving or worsen. Return to emergency department for new, urgent health care needs. All discharge instructions reviewed with patient and/or family. Voiced understanding. ADRIAN SUNSHINE Mar 14, 2019 18:08
--- NOTE | 2019-03-14 18:20 | Diagnostic Imaging Report ---
INDICATION: Finger injury COMPARISON: None available. TECHNIQUE: Three radiographs on the right hand, particularly the fifth digit, dated 03/14/2019. FINDINGS: No acute fracture or dislocation. No destructive osseous process. Mild scattered degenerative changes. No suspicious radiopaque foreign body. Carpal alignment is well maintained. IMPRESSION: No acute osseous abnormality with mild scattered degenerative changes. Dictated by: Dictated on workstation # [id number]
[2019-03-14 18:27] VITALS: BP 136/73
== END 2019-03-14 18:28 | disposition home or self-care (01) ==
LOC: EDUNIT# 17:29 → ER 17:30
DX: S60.051A Contusion of right little finger without damage to nail, initial encounter (principal); I10 Essential (primary) hypertension; E66.01 Morbid (severe) obesity due to excess calories; Z86.73 Personal history of transient ischemic attack (TIA), and cerebral infarction without residual deficits; Z88.0 Allergy status to penicillin; Z88.5 Allergy status to narcotic agent; Z77.22 Contact with and (suspected) exposure to environmental tobacco smoke (acute) (chronic); Z68.41 Body mass index [BMI] 40.0-44.9, adult; Z90.710 Acquired absence of both cervix and uterus; W54.8XXA Other contact with dog, initial encounter
CPT/HCPCS: 73140

== ENCOUNTER 2019-03-24 11:32 | Emergency (ER) | payer MEDICAID ==
[~2019-03-24] VITALS: Ht 165.1 cm; Wt 133.8 kg
--- NOTE | 2019-03-24 11:48 | ED Back Pain ---
General Chief Complaint: Back Problems Stated Complaint: LEFT SIDE/BACK/RIB PAIN Nursing Triage Note: LEFT SIDED BACK PAIN THAT RADIATES INTO STOMACH SINCE THRUSDAY. STATES IBUPROFEN IS NO LONGER HELPING. Nursing Sepsis Screen: Possible Sepsis Risk Source of Information: Patient Exam Limitations: No Limitations History of Present Illness Date Seen by Provider: Mar 24, 2019 Time Seen by Provider: 11:46 Initial Comments To ER with left flank pain for 3 days. It radiates into the left anterior abdomen. This began when she reached for something and felt as though she pulled a muscle. However the pain has progressively gotten worse since then to the point that she is unable to find a comfortable position to sit in. No fevers chills or dysuria. Location: Paraspinous Muscles Timing/Duration: 2-3 Days Severity: Moderate Method of Injury: Unknown Associated Symptoms: denies symptoms Allergies and Home Medications Allergies Coded Allergies: morphine (Unverified Allergy, Unknown, 03/09/15) Penicillins (Verified Adverse Reaction, Mild, 07/12/12) Home Medications Hydrocodone/Acetaminophen 1 Each Tablet, 1 TAB PO Q6H Prescribed by: MIRELLA NAIR on 03/24/19 1240 Patient Home Medication List Home Medication List Reviewed: Yes Review of Systems Constitutional: see HPI EENTM: see HPI Respiratory: no symptoms reported Cardiovascular: no symptoms reported Genitourinary: no symptoms reported Musculoskeletal: see HPI Skin: no symptoms reported Psychiatric/Neurological: No Symptoms Reported Past Iavrjqq-Stgpto-Uohoix Hx Patient Social History Type Used: Cigarettes 2nd Hand Smoke Exposure: Yes Recent Foreign Travel: No Contact w/Someone Who Travel: No Recent Infectious Disease Expo: No Recent Hopitalizations: No Past Medical History Surgeries: Yes (SINUS SURGERY; HYST/BSO) Gallbladder, Hysterectomy, Oophorectomy, Orthopedic Respiratory: No Cardiac: Yes Hypertension Neurological: Yes TIA : No 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 Disorders: No 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 oz. [id number]; 34.94 BMI Method:Stated General Appearance: No Apparent Distress, WD/WN Neck: Full Range of Motion, Normal Inspection Respiratory: No Accessory Muscle Use, No Respiratory Distress Gastrointestinal: Normal Bowel Sounds, Non Tender, Soft Extremity: Normal Capillary Refill, Normal Inspection Neurologic/Psychiatric: Alert, Oriented x3 Skin: Normal Color, Warm/Dry Progress/Results/Core Measures Results/Orders Lab Results Laboratory Tests Test 03/24/19 11:50 03/24/19 12:01 Range/Units White Blood Count 13.4 H 4.3-11.0 10^3/uL Red Blood Count 4.35 4.35-5.85 10^6/uL Hemoglobin 13.8 11.5-16.0 G/DL Hematocrit 40 35-52 % Mean Corpuscular Volume 92 80-99 FL Mean Corpuscular Hemoglobin 32 25-34 PG Mean Corpuscular Hemoglobin Concent 34 32-36 G/DL Red Cell Distribution Width 15.1 H 10.0-14.5 % Platelet Count 380 130-400 10^3/uL Mean Platelet Volume 9.9 7.4-10.4 FL Neutrophils (%) (Auto) 48 42-75 % Lymphocytes (%) (Auto) 45 H 12-44 % Monocytes (%) (Auto) 6 0-12 % Eosinophils (%) (Auto) 1 0-10 % Basophils (%) (Auto) 0 0-10 % Neutrophils # (Auto) 6.4 1.8-7.8 X 10^3 Lymphocytes # (Auto) 6.0 H 1.0-4.0 X 10^3 Monocytes # (Auto) 0.8 0.0-1.0 X 10^3 Eosinophils # (Auto) 0.2 0.0-0.3 10^3/uL Basophils # (Auto) 0.0 0.0-0.1 10^3/uL Sodium Level 141 135-145 MMOL/L Potassium Level 3.1 L 3.6-5.0 MMOL/L Chloride Level 102 98-107 MMOL/L Carbon Dioxide Level 29 21-32 MMOL/L Anion Gap 10 5-14 MMOL/L Blood Urea Nitrogen 5 L 7-18 MG/DL Creatinine 0.81 0.60-1.30 MG/DL Estimat Glomerular Filtration Rate > 60 BUN/Creatinine Ratio 6 Glucose Level 108 H 70-105 MG/DL Calcium Level 9.9 8.5-10.1 MG/DL Corrected Calcium 9.5 8.5-10.1 MG/DL Total Bilirubin 0.3 0.1-1.0 MG/DL Aspartate Amino Transf (AST/SGOT) 16 5-34 U/L Alanine Aminotransferase (ALT/SGPT) 12 0-55 U/L Alkaline Phosphatase 90 40-136 U/L Total Protein 8.5 H 6.4-8.2 GM/DL Albumin 4.5 3.2-4.5 GM/DL Urine Color YELLOW Urine Clarity CLEAR Urine pH 5 5-9 Urine Specific [place] 1.005 L 1.016-1.022 Urine Protein NEGATIVE NEGATIVE Urine Glucose (UA) NEGATIVE NEGATIVE Urine Ketones NEGATIVE NEGATIVE Urine Nitrite NEGATIVE NEGATIVE Urine Bilirubin NEGATIVE NEGATIVE Urine Urobilinogen NORMAL NORMAL MG/DL Urine Leukocyte Esterase NEGATIVE NEGATIVE Urine RBC (Auto) NEGATIVE NEGATIVE Urine RBC NONE /HPF Urine WBC RARE /HPF Urine Crystals NONE /LPF Urine Bacteria TRACE /HPF Urine Casts NONE /LPF Urine Mucus NEGATIVE /LPF Urine Culture Indicated NO My Orders Orders - MIRELLA NAIR APRN Ua Culture If Indicated (03/24/19 11:42) Urine Bedside (03/24/19 11:42) Ed Iv/Invasive Line Start (03/24/19 11:42) Cbc With Automated Diff (03/24/19 11:42) Comprehensive Metabolic Panel (03/24/19 11:42) Ct Abd/Pelvis Wo(Kidney Stone) (03/24/19 11:46) Abdomen/Kub 1view (03/24/19 11:46) Ketorolac Injection (Toradol Injection) (03/24/19 12:00) Fentanyl Injection (Sublimaze Injection (03/24/19 12:00) Ns Iv 1000 Ml (Sodium Chloride 0.9%) (03/24/19 12:00) Potassium Chloride (Tablet) (Klor Con Ta (03/24/19 12:30) Medications Given in ED Current Medications Medications Dose Ordered Sig/Dhara Route Start Time Stop Time Status Last Admin Dose Admin Fentanyl Citrate 50 mcg ONCE ONCE IVP 03/24/19 12:00 03/24/19 12:01 DC 03/24/19 11:58 50 MCG Ketorolac Tromethamine 15 mg ONCE ONCE IVP 03/24/19 12:00 03/24/19 12:01 DC 03/24/19 12:00 15 MG Potassium Chloride 40 meq ONCE ONCE PO 03/24/19 12:30 03/24/19 12:31 DC 03/24/19 12:31 40 MEQ Vital Signs/I&O 03/24/19 11:35 Temp 100.0 Pulse 92 Resp 16 B/P (MAP) 149/100 (116) Pulse Ox 97 O2 Delivery Room Air Blood Pressure Mean: 116 Departure Impression Primary Impression: Right ureteral calculus Additional Impression: Left flank pain Disposition: HOME, SELF-CARE Condition: Stable Departure-Patient Inst. Decision time for Depature: 12:23 [place] [facility] [place] Primary Care Physician MIGUELINA BANSAL MD Patient Instructions: Kidney Stones (DC), Muscle Strain Add. Discharge Instructions: 1. Follow-up with Dr Bansal about the kidney stone on the RIGHT (not on the left where your pain is at). Call today to make an appointment to be seen. 2. Return to ER for any concerns 3. Medication as directed. Use ibuprofen and Tylenol in addition to the prescribed muscle relaxers. To the area may be helpful, be careful not to burn yourself. All discharge instructions reviewed with patient and/or family. Voiced understanding. Scripts Tamsulosin HCl (Flomax) 0.4 Mg Cap 0.4 MG PO DAILY, #20 CAP Prov: MIRELLA NAIR APRN 03/24/19 Hydrocodone/Acetaminophen ([place] 5-325 Tablet) 1 Each Tablet 1 TAB PO Q6H for Pain MDD 10 TABS for 7 Days, #20 TAB Prov: MIRELLA NAIR APRN 03/24/19 Work/School Note: Work Release Form Date Seen in the Emergency Department: Mar 24, 2019 Return to Work: Mar 25, 2019 MIRELLA NAIR APRN Mar 24, 2019 11:48
[2019-03-24 11:56] LABS: BASOPHILS % (AUTO) 0 % (0-10); EOSINOPHILS # (AUTO) 0.2 10^3/uL (0.0-0.3); EOSINOPHILS % (AUTO) 1 % (0-10); HEMATOCRIT 40 % (35-52); HEMOGLOBIN 13.8 G/DL (11.5-16.0); LYMPHOCYTES % (AUTO) 45 % (12-44); MEAN CORPUSCULAR HEMOGLOBIN 32 PG (25-34); MEAN CORPUSCULAR HGB CONC 34 G/DL (32-36); MEAN CORPUSCULAR VOLUME 92 FL (80-99); MEAN PLATELET VOLUME 9.9 FL (7.4-10.4); MONOCYTES # (AUTO) 0.8 X 10^3 (0.0-1.0); MONOCYTES % (AUTO) 6 % (0-12); NEUTROPHILS # (AUTO) 6.4 X 10^3 (1.8-7.8); NEUTROPHILS % (AUTO) 48 % (42-75); PLATELET COUNT 380 10^3/uL (130-400); RED CELL DISTRIBUTION WIDTH 15.1 % (10.0-14.5); WHITE BLOOD COUNT 13.4 10^3/uL (4.3-11.0)
[2019-03-24] MEDS ORDERED: NS IV 1000 ML 1,000 ML IV SCH (12:00)
[2019-03-24] MEDS ORDERED: fentaNYL INJECTION 100 MCG/2 ML AMP IVP ONE ×2 (12:00→13:00)
[2019-03-24] MEDS ORDERED: KETOROLAC 30 MG/ML VIAL IVP ONE ×2 (12:00→12:45)
[2019-03-24 12:07] LABS: BILIRUBIN,URINE NEGATIVE (NEGATIVE); CLARITY,URINE CLEAR; COLOR,URINE YELLOW; GLUCOSE, URINE (UA) NEGATIVE (NEGATIVE); KETONES,URINE NEGATIVE (NEGATIVE); LEUKOCYTE ESTERASE ,URINE NEGATIVE (NEGATIVE); NITRITE,URINE NEGATIVE (NEGATIVE); PH,URINE 5 (5-9); PROTEIN,URINE NEGATIVE (NEGATIVE); UROBILINOGEN,URINE NORMAL (NORMAL)
[2019-03-24 12:20] LABS: ALANINE AMINOTRANSFERASE 12 U/L (0-55); ALBUMIN 4.5 GM/DL (3.2-4.5); ALKALINE PHOSPHATASE 90 U/L (40-136); BILIRUBIN,TOTAL 0.3 MG/DL (0.1-1.0); BUN/CREATININE RATIO 6; CALCIUM 9.9 MG/DL (8.5-10.1); CARBON DIOXIDE 29 MMOL/L (21-32); CHLORIDE 102 MMOL/L (98-107); CREATININE SERUM 0.81 MG/DL (0.60-1.30); GFR ESTIMATED > 60; GLUCOSE 108 MG/DL (70-105); POTASSIUM 3.1 MMOL/L (3.6-5.0); SODIUM 141 MMOL/L (135-145); TOTAL PROTEIN 8.5 GM/DL (6.4-8.2)
[2019-03-24 12:22] LABS: WBC,URINE RARE /HPF
[2019-03-24 12:23] LABS: BACTERIA,URINE TRACE /HPF
[2019-03-24] MEDS ORDERED: METH-313 PO (12:24)
[2019-03-24] MEDS ORDERED: KCL 10 MEQ TAB (MICRO K) PO ONE (12:30)
--- NOTE | 2019-03-24 12:32 | Diagnostic Imaging Report ---
INDICATION: Left-sided back pain. COMPARISON: None. FINDINGS: Two supine radiographic views of the abdomen were obtained. Small bowel loops are nondistended. There is no large collection of free intraperitoneal air. Mild amount of air and stool is noted scattered throughout the colon. There is a small 4 mm extraosseous calculus projecting over the right hemipelvis. No other unexpected extraosseous calcifications or radiopaque foreign bodies are seen. IMPRESSION: 1. Probable right pelvic phlebolith. Distal ureteral calculus cannot be entirely excluded. 2. Nonobstructed small bowel gas pattern. Dictated by: Dictated on workstation # [id number]
--- NOTE | 2019-03-24 12:37 | Diagnostic Imaging Report ---
PROCEDURE: CT urinary tract, rule out kidney stone. TECHNIQUE: Multiple contiguous axial images were obtained through the abdomen and pelvis without the use of intravenous contrast. Auto Exposure Controls were utilized during the CT exam to meet ALARA standards for radiation dose reduction. INDICATION: Left-sided back pain. COMPARISON: Abdominal radiographs also performed today. FINDINGS: Cholecystectomy. 0.5 cm renal stone in the distal right ureter. Although this results in only minimal right ureterectasis, there are marked inflammatory changes about the ureter at this level. No left hydronephrosis. No other renal stones. Moderate colonic diverticulosis without evidence of active diverticulitis. Normal appendix. The liver, pancreas, spleen, adrenals, and bladder are negative on this noncontrast exam. Hysterectomy. No lymphadenopathy. No free intraperitoneal air or fluid. Osseous structures are intact. IMPRESSION: 1. 0.5 cm renal stone in the distal right ureter. This results in minimal right ureterectasis. However, there is marked inflammatory stranding about the ureter at this level. No other renal stones. 2. Moderate colonic diverticulosis without evidence of active diverticulitis. Dictated by: Dictated on workstation # [id number]
[2019-03-24] MEDS ORDERED: HYDR-4226 PO (12:40)
[2019-03-24] MEDS ORDERED: TAMS0.4C98 PO (12:41)
[2019-03-24 12:59] VITALS: BP 113/71
== END 2019-03-24 12:59 | disposition home or self-care (01) ==
LOC: EDUNIT# 11:32 → ER 11:33
DX: N20.1 Calculus of ureter (principal); I10 Essential (primary) hypertension; E66.01 Morbid (severe) obesity due to excess calories; Z68.42 Body mass index [BMI] 45.0-49.9, adult; Z86.73 Personal history of transient ischemic attack (TIA), and cerebral infarction without residual deficits; Z88.0 Allergy status to penicillin; Z88.5 Allergy status to narcotic agent; Z77.22 Contact with and (suspected) exposure to environmental tobacco smoke (acute) (chronic); Z90.710 Acquired absence of both cervix and uterus
CPT/HCPCS: 36415; 74018; 74176; 80053; 81000; 84703; 85025; 96361; 96374; 96375; 96376

== ENCOUNTER → 2019-03-29 | Outpatient (CLI) | payer MEDICAID ==
[~2019-03-29] MED LIST changes: +METH-313 PO; +TAMS0.4C98 PO
--- NOTE | 2019-03-29 15:08 | Diagnostic Imaging Report ---
INDICATION: Right ureteral stone, followup. TIME OF EXAM: 2:44 p.m. COMPARISON: Correlation is made with abdominal radiograph from 03/24/2019. FINDINGS: Right pelvic calcifications are in similar location to prior radiograph. No additional calcifications are seen. Bowel gas pattern is unremarkable. Surgical clips in the right upper quadrant are noted. IMPRESSION: Stable KUB since examination five days earlier. Dictated by: Dictated on workstation # [id number]
== END ==
LOC: RAD 14:32
PROVIDERS: ATTEND Urology
DX: N20.1 Calculus of ureter (principal); Z98.890 Other specified postprocedural states
CPT/HCPCS: 74018

== ENCOUNTER 2019-04-04 09:30 | Outpatient (CLI) | payer MEDICAID ==
[~2019-04-04] VITALS: Ht 165.1 cm; Wt 133.9 kg
[2019-04-04] MEDS ORDERED: ATEN25TA PO (09:51)
[2019-04-04] MEDS ORDERED: HYDR25TA4 PO (09:51)
== END 2019-04-04 10:04 | disposition home or self-care (01) ==
LOC: PREOP 09:30
PROVIDERS: ATTEND Urology
DX: Z01.818 Encounter for other preprocedural examination (principal)

== ENCOUNTER 2019-04-05 09:29 | Day surgery (SDC) | payer MEDICAID ==
[~2019-04-05] VITALS: Ht 165.1 cm; Wt 133.9 kg
[2019-04-05] VITALS (12 sets, daily range): BP systolic 106–130; BP diastolic 71–91
[~2019-04-05 09:29] MED LIST changes: +ATEN25TA PO; +HYDR25TA4 PO
[2019-04-05] MEDS ORDERED: LACTATED RINGERS 1,000 ML IV PRN (09:39)
[2019-04-05] MEDS ORDERED: cefTRIAXone FOR IV USE 1,000 MG in WATER (STERILE) FOR INJECTION 10 ML IV ONE ×2 (09:45→10:00)
--- NOTE | 2019-04-05 09:45 | NUR ---
DR. BANSAL ON FLOOR AND THIS RN INFORMED OF PATIENT ALLERGY AND VERIFIED WITH PATIENT THAT HAD ONLY KNEW ABOUT HIGH FEVER WHEN A BABY.
--- NOTE | 2019-04-05 09:51 | Progress Note-Pre Operative ---
Pre-Operative Progress Note H&P Reviewed The H&P was reviewed, patient examined and no changes noted. Date Seen by Provider: Apr 05, 2019 Time Seen by Provider: 09:51 Date H&P Reviewed: Apr 05, 2019 Time H&P Reviewed: 09:51 Pre-Operative Diagnosis: RT DISTAL URETERAL STONE MIGUELINA BANSAL MD Apr 05, 2019 09:51
[2019-04-05] MEDS ORDERED: LIDOCAINE PF 2% 5 ML (XYLOCAINE) VIAL ONE (09:55)
[2019-04-05] MEDS ORDERED: proPOfol 200 MG/20 ML (DIPRIVAN) VIAL IV ONE (09:55)
[2019-04-05] MEDS ORDERED: fentaNYL INJECTION 100 MCG/2 ML AMP ONE ×2 (09:56→11:30)
[2019-04-05] MEDS ORDERED: MIDAZOLAM 2 MG/2 ML (VERSED) VIAL ONE (09:56)
[2019-04-05] MEDS: LACTATED RINGERS 1,000 ML IV PRN ×2 (10:00→11:42)
[2019-04-05] MEDS ORDERED: IOHEXOL 300 MG/ML 30 ML (OMNIPAQUE 300) VIAL IV ONE (10:40)
[2019-04-05] MEDS ORDERED: ONDANSETRON 4 MG/2 ML (SDV) Z0FRAN ONE ×2 (10:48→11:30)
[2019-04-05] MEDS ORDERED: DEXAMETHASONE 10 MG/ML (DECADRON) 1 ML VIAL ONE (10:48)
[2019-04-05] MEDS ORDERED: SEVOFLURANE (ULTANE) 15 ML INHAL SOLN ONE (10:48)
[2019-04-05] MEDS ORDERED: ONDANSETRON 4 MG/2 ML (SDV) Z0FRAN IVP PRN (11:45)
[2019-04-05] MEDS ORDERED: fentaNYL INJECTION 100 MCG/2 ML AMP IVP ONE (11:45)
--- NOTE | 2019-04-05 11:48 | Progress Note-Post Operative ---
Post-Operative Progess Note Surgeon (s)/Report Developer (s) Surgeon MIGUELINA BANSAL MD Report Developer: NONE Pre-Operative Diagnosis RT DISTAL URETERAL STONE Post-Operative Diagnosis SAME Procedure & Operative Findings Date of Procedure 04/05/19 Procedure Performed/Findings RT URETEROSCOPY WITH RETROGRADE UROGRAM Anesthesia Type GENERAL Estimated Blood Loss Estimated blood loss (mL): NONE Specimens/Packing Specimens Removed NONE Packing: NONE MIGUELINA BANSAL MD Apr 05, 2019 11:48
--- NOTE | 2019-04-05 11:50 | Discharge Inst-Urology ---
Discharge Inst-Urology Reconcile Patient Problems Problems Reviewed?: Yes Patient Instructions/Follow Up Plan/Assessment/Instructions Please make appointment to been seen in office in 2 weeks. Increase oral fluids for 48 hours and then as needed. Diet and Activity as tolerated. If questions or concerns contact your physician Or seek help at emergency department. MIGUELINA BANSAL MD Apr 05, 2019 11:49
[2019-04-05] MEDS ORDERED: PHENAZOPYRIDINE 100 MG (PYRIDIUM) TABLET ONE (12:29)
[2019-04-05] MEDS ORDERED: KETOROLAC 30 MG/ML VIAL ONE (12:29)
--- NOTE | 2019-04-05 12:36 | NUR ---
patient is moaning and cursing in pain. this rn phoned dr. bansal and informed of 50 fentanyl given in pacu as well as zofran and 100 fentanyl in or. gave telephone order for toradol 30mg and pyridium 200mg once. will continue to monitor patient. Addendum: 04/05/19 at 1254 by MONIKA MCBRIDE RN DR. BANSAL HAS NO HOME PRESCRIPTIONS TO SEND HOME
[2019-04-05] MEDS ORDERED: KETOROLAC 30 MG/ML VIAL IVP ONE (12:45)
[2019-04-05] MEDS ORDERED: PHENAZOPYRIDINE 100 MG (PYRIDIUM) TABLET PO ONE (12:45)
--- NOTE | 2019-04-05 13:06 | Diagnostic Imaging Report ---
INDICATION: Preop for ureteral stone treatment. TIME OF EXAM: 10:11 a.m. COMPARISON: Correlation is made with prior study from 03/29/2019. FINDINGS: Bowel gas pattern is unremarkable. Surgical clips in the right upper quadrant are noted. The right pelvic calcification is in similar location as prior radiograph. This could be in the distal right ureter. No other radiopaque urinary tract calculi are seen. IMPRESSION: Stable KUB when compared with examination from 03/29/2019. Dictated by: Dictated on workstation # [id number]
--- NOTE | 2019-04-05 14:06 | Anesthesia-General Post-Op ---
General Post Op Complications Complications None Follow Up Care/Instructions Patient Instructions None needed. Anesthesia/Patient Condition Patient Condition Patient is doing well, no complaints, stable vital signs, no apparent adverse anesthesia problems. No complications reported per nursing. ARACELI ZIMMER CRNA Apr 05, 2019 14:06
--- NOTE | 2019-04-05 15:29 | OPERATIVE REPORT ---
DATE OF SERVICE: 04/05/2019 PREOPERATIVE DIAGNOSIS: Right distal ureteral stone. POSTOPERATIVE DIAGNOSIS: Right distal ureteral stone. OPERATION PERFORMED: Right ureteroscopy with retrograde urogram. SURGEON: Tod Bansal MD ANESTHESIA: General. COMPLICATIONS: None. DESCRIPTION OF PROCEDURE: Under satisfactory general anesthesia, the patient in lithotomy position, genitalia were prepped and draped in the usual sterile fashion. Noted a vaginal prolapse. The 23-Cymro cystoscope was introduced in the bladder. Bladder was essentially normal with clear efflux equal bilaterally. Using the foroblique lens, I dilated the right ureteral orifice intramural portion to accommodate a 6.9 Cymro semi-rigid ureteroscope. This was passed up to the proximal ureter up and down. No stones were visualized. The calcification seen was more of a phlebolith outside the ureter. I backed up the ureteroscope, injected contrast. There was no filling defect anywhere in the ureter. There was complete emptying of the ureter on withdrawing the ureteroscope. The ureteroscope was removed. The cystoscope was inserted and the bladder was evacuated. The patient tolerated the procedure and anesthesia well and was sent to recovery room in stable condition. Job ID: [id number] DocumentID: [id number] Dictated Date: 04/05/2019 11:13:59 Consumer Science Teacher Date: 04/05/2019 15:28:54 Dictated By: TOD BANSAL MD
== END 2019-04-05 13:30 | disposition home or self-care (01) ==
LOC: SDC 09:29
PROVIDERS: ATTEND Urology
DX: N20.1 Calculus of ureter (principal); I10 Essential (primary) hypertension; F17.210 Nicotine dependence, cigarettes, uncomplicated; E66.9 Obesity, unspecified; Z68.42 Body mass index [BMI] 45.0-49.9, adult; Z79.891 Long term (current) use of opiate analgesic; Z79.899 Other long term (current) drug therapy; Z88.5 Allergy status to narcotic agent; Z88.0 Allergy status to penicillin; Z88.3 Allergy status to other anti-infective agents; Z80.9 Family history of malignant neoplasm, unspecified; Z82.49 Family history of ischemic heart disease and other diseases of the circulatory system
CPT/HCPCS: 74018; 87081

== ENCOUNTER → 2020-05-08 | Outpatient (CLI) | payer MEDICAID ==
[~2020-05-08] MED LIST changes: +METF-865; -METF500T8; -TAMS0.4C98 PO; +TMSL.4C PO; -TRAZ-222; +TRZ50T
--- NOTE | 2020-05-09 09:08 | Diagnostic Imaging Report ---
EXAMINATION: Digital mammogram INDICATION: Bilateral screening This is the patient's baseline exam. At this time there are no current complaints. 3D tomographic images obtained and reviewed. The breasts are predominantly fatty. There is no primary or secondary sign of malignancy noted. IMPRESSION: 1. There is no evidence of malignancy. 2. The patient should have her annual bilateral screening mammogram on schedule in April 2021. ACR category 1 ACR BI-RADS Category 1: Negative. Result letter will be mailed to the patient. Note: At least 10% of breast cancer is not imaged by mammography. Dictated by: Dictated on workstation # [id number]
== END ==
LOC: RAD 07:48
PROVIDERS: ATTEND Nurse Practitioner
DX: Z12.31 Encounter for screening mammogram for malignant neoplasm of breast (principal)
CPT/HCPCS: 77063; 77067

== ENCOUNTER 2020-06-27 10:10 | Emergency (ER) | payer MEDICAID ==
[~2020-06-27] VITALS: Ht 165 cm; Wt 131.0 kg
--- NOTE | 2020-06-27 11:01 | ED GI ---
General Chief Complaint: Abdominal/GI Problems Stated Complaint: CONSTIPATION Source of Information: Patient Exam Limitations: No Limitations History of Present Illness Date Seen by Provider: Jun 27, 2020 Time Seen by Provider: 10:45 Initial Comments Patient is a 44-year-old female who presents to the emergency department today with a chief complaint of abdominal and back pain and constipation. Patient states that she has not had a bowel movement in the last 3 weeks. She is tried multiple jbyi-lwg-qbuthcw remedies including Dulcolax and mag citrate. Patient states she drinks at least a gallon of water a day. Patient states she has never had constipation this bad before. She states absolutely nothing is pass ing through her rectum. Patient states she came in today because she started having increasing pain in her back in the area of "my kidneys". Patient states that she has lost control of her bladder over the course of the last week and has had to wear depends. Patient denies any fevers or chills. Nothing makes the pain any better or any worse. Patient states that she cannot do enemas secondary to her size and obesity. Patient denies any hemorrhoids or blood in her stool. She states that her mother had a history of rectal cancer. Patient states that she is not nauseated but she does feel "bloated". All other review of systems reviewed negative except as stated above. Timing/Duration: Constant, Getting Worse Severity/Quality: Severe, Cramping Location: Generalized Abdomen Radiation: Back Activities at Onset: None Associated Symptoms: Back Pain Allergies and Home Medications Allergies Coded Allergies: morphine (Unverified Allergy, Unknown, 04/05/19) Penicillins (Verified Adverse Reaction, Mild, 04/05/19) high fever Home Medications Atenolol 25 Mg Tablet, 25 MG PO DAILY, (Reported) Hydrochlorothiazide 25 Mg Tablet, 25 MG PO DAILY, (Reported) Hydrocodone/Acetaminophen 1 Each Tablet, 1 TAB PO Q6H Prescribed by: MIRELLA NAIR on 03/24/19 1240 Lactulose 10 Gm Packet, 10 GM PO BID Prescribed by: MEHUL FRAZIER on 06/27/20 1105 Peg/Electrolytes 4,000 Ml Soln, 4,000 ML PO UD Prescribed by: MEHUL FRAZIER on 06/27/20 1105 Patient Home Medication List Home Medication List Reviewed: Yes Review of Systems Review of Systems Constitutional: no symptoms reported, see HPI EENTM: No Symptoms Reported Respiratory: No Symptoms Reported Cardiovascular: No Symptoms Reported Gastrointestinal: Abdomen Distended, Abdominal Pain, Constipated Genitourinary: Incontinence Musculoskeletal: no symptoms reported Skin: no symptoms reported All Other Systems Reviewed Negative Unless Noted: Yes Past Npcqrlo-Eejwbe-Czzhbp Hx Patient Social History Type Used: Cigarettes 2nd Hand Smoke Exposure: Yes Recent Foreign Travel: No Contact w/Someone Who Travel: No Recent Hopitalizations: No Seasonal Allergies Seasonal Allergies: No Past Medical History Surgeries: Yes (SINUS SURGERY; c/s x2, L shoulder) Section, Gallbladder, Hysterectomy, Oophorectomy, Orthopedic Respiratory: No Currently Using CPAP: No Currently Using BIPAP: No Cardiac: Yes Hypertension Neurological: Yes TIA 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 oz. 133.763524ae; 49.12 BMI Method:Stated General Appearance: WD/WN, mild distress, obese HEENT: PERRL/EOMI Respiratory: lungs clear, normal breath sounds, no respiratory distress Cardiovascular: regular rate, rhythm Gastrointestinal: normal bowel sounds (Slightly hypoactive bowel sounds), non tender, soft Extremities: non-tender, normal inspection, no pedal edema Back: normal inspection Pelvic: other (Hard stool palpated high up in the rectal vault no external hemorrhoids observed, no internal hemorrhoids are palpated) Skin: normal color, warm/dry Progress/Results/Core Measures Results/Orders Lab Results Laboratory Tests Test 06/27/20 10:49 Range/Units Urine Color YELLOW Urine Clarity CLEAR Urine pH 6.0 5-9 Urine Specific [place] 1.020 1.016-1.022 Urine Protein NEGATIVE NEGATIVE Urine Glucose (UA) NEGATIVE NEGATIVE Urine Ketones NEGATIVE NEGATIVE Urine Nitrite NEGATIVE NEGATIVE Urine Bilirubin NEGATIVE NEGATIVE Urine Urobilinogen 0.2 < = 1.0 MG/DL Urine Leukocyte Esterase 2+ H NEGATIVE Urine RBC (Auto) TRACE-I NEGATIVE Urine RBC 2-5 H /HPF Urine WBC 50-100 H /HPF Urine Squamous Epithelial Cells 25-50 H /HPF Urine Renal Epithelial Cells 0-2 /HPF Urine Crystals PRESENT H /LPF Urine Amorphous Sediment MOD LISA URATES H /LPF Urine Bacteria LARGE H /HPF Urine Casts NONE /LPF Urine Mucus NEGATIVE /LPF Urine Culture Indicated YES My Orders Orders - MEHUL FRAZIER MD Ua Culture If Indicated (06/27/20 11:01) Urine Culture (06/27/20 10:49) Vital Signs/I&O 06/27/20 06/27/20 10:10 11:53 Temp 36.5 36.5 Pulse 100 90 Resp 18 18 B/P (MAP) 124/85 (98) 120/79 (98) Pulse Ox 100 100 Departure Impression Primary Impression: Constipation Qualified Codes: K59.00 - Constipation, unspecified Disposition: HOME, SELF-CARE Condition: Stable Departure-Patient Inst. Decision time for Depature: 12:00 Referrals: [facility]/ (PCP) Primary Care Physician HILL LAWSON APRN (Family) Primary Care Physician Patient Instructions: Constipation, Adult (DC) Add. Discharge Instructions: Try and eat a high-fiber diet. Drink 1 gallon of water a day. Take a daily stool softener. I have given you a prescription for lactulose as well as GoLYTELY. Drink the gallon of GoLYTELY to help clean out your colon. Then you can use the lactulose until you have diarrhea. Please call and follow-up with your primary care provider for later this week or early next week. Return to the emergency department for any increased pain especially if you are passing blood in your stool or any other emergent concerns. All discharge instructions reviewed with patient and/or family. Voiced understanding. Scripts Peg/Electrolytes (Golytely Solution) 4,000 Ml Soln 4000 ML PO UD, #1 EA Prov: MEHUL FRAZIER MD 06/27/20 Lactulose (Lactulose) 10 Gm Packet 10 GM PO BID, #120 PACKET Prov: MEHUL FRAZIER MD 06/27/20 MEHUL FRAZIER MD Jun 27, 2020 11:00
[2020-06-27] MEDS ORDERED: LACT10PA3 PO (11:05)
[2020-06-27] MEDS ORDERED: CLT4KB PO (11:05)
[2020-06-27 11:09] LABS: BILIRUBIN,URINE NEGATIVE (NEGATIVE); CLARITY,URINE CLEAR; COLOR,URINE YELLOW; GLUCOSE, URINE (UA) NEGATIVE (NEGATIVE); KETONES,URINE NEGATIVE (NEGATIVE); LEUKOCYTE ESTERASE ,URINE 2+ (NEGATIVE); NITRITE,URINE NEGATIVE (NEGATIVE); PROTEIN,URINE NEGATIVE (NEGATIVE)
[2020-06-27 11:19] LABS: BACTERIA,URINE LARGE /HPF; RENAL EPITHELIAL CELLS,URINE 0-2 /HPF; SQUAMOUS EPITHELIAL CELL,UR 25-50 /HPF; WBC,URINE 50-100 /HPF
[2020-06-27 11:21] LABS: AMORPHOUS SEDIMENT,UR MOD AMOR URATES /LPF
[2020-06-27 11:53] VITALS: BP 120/79
== END 2020-06-27 11:53 | disposition home or self-care (01) ==
LOC: EDUNIT# 10:10 → ER 10:12
DX: K59.00 Constipation, unspecified (principal); E66.01 Morbid (severe) obesity due to excess calories; G89.29 Other chronic pain; M54.9 Dorsalgia, unspecified; I10 Essential (primary) hypertension; Z68.42 Body mass index [BMI] 45.0-49.9, adult; Z86.73 Personal history of transient ischemic attack (TIA), and cerebral infarction without residual deficits; Z77.22 Contact with and (suspected) exposure to environmental tobacco smoke (acute) (chronic); Z88.0 Allergy status to penicillin; Z88.5 Allergy status to narcotic agent; Z79.891 Long term (current) use of opiate analgesic
CPT/HCPCS: 81000; 87088; 99284

== ENCOUNTER 2020-07-17 01:05 | Emergency (ER) | payer MEDICAID ==
[~2020-07-17] VITALS: Ht 162.5 cm; Wt 154.0 kg
[~2020-07-17 01:05] MED LIST changes: +CLT4KB PO; +LACT10PA3 PO
--- NOTE | 2020-07-17 01:34 | ED Lower Extremity ---
General Chief Complaint: General Problems/Pain Stated Complaint: BIG TOE PAIN,RT FOOT Source: patient History of Present Illness Date Seen by Provider: Jul 17, 2020 Time Seen by Provider: 01:24 Initial Comments PT ARRIVES VIA POV FROM HOME, WANTS WHEELCHAIR ON ARRIVAL C/O SUDDEN ONSET OF PAIN TO ENTIRE RIGHT GREAT TOE--BEGAN LESS THAN AN HOUR AGO PAIN COMES AND GOES, IS SEVERE AND LASTS A MINUTE OR TWO, THEN GOES AWAY NO INJURY NO NUMBNESS OR TINGLING NO FEVER, NO DRAINAGE, NO SWELLING, NO STREAKS TOOK 2 TYLENOL JUST PRIOR TO ARRIVAL HAD SAME THING ABOUT A YEAR AGO. BUT NOT THIS BAD, AND ONLY LASTED 1 DAYS, FOR A COUPLE OF MINUTES. DID NOT SEEK CARE AT THAT TIME. PT TAKES HYDROCHLOROTHIAZIDE AND ATENOLOL FOR HTN Allergies and Home Medications Allergies Coded Allergies: morphine (Unverified Allergy, Unknown, 07/17/20) Penicillins (Verified Adverse Reaction, Mild, 07/17/20) high fever Home Medications Atenolol 25 Mg Tablet, 25 MG PO DAILY, (Reported) Colchicine 0.6 Mg Tablet, 0.6 MG PO UD 1.2 MG AT ONSET OF GOUT FLARE, THEN MAY TAKE 0.6 MG BID Prescribed by: BOSTON HERNANDEZ on 07/17/20237 Hydrochlorothiazide 25 Mg Tablet, 25 MG PO DAILY, (Reported) Hydrocodone/Acetaminophen 1 Each Tablet, 1 TAB PO Q6H Prescribed by: MIRELLA NAIR on 03/24/19 1240 Hydrocodone/Acetaminophen 1 Each Tablet, 1 EACH PO Q4-6 HOURS PRN for PAIN Prescribed by: BOSTON HERNANDEZ on 07/17/20 0219 Lactulose 10 Gm Packet, 10 GM PO BID Prescribed by: MEHUL FRAZIER on 06/27/20 1105 Peg/Electrolytes 4,000 Ml Soln, 4,000 ML PO UD Prescribed by: MEHUL FRAZIER on 06/27/20 1105 Prednisone 20 Mg Tab, 40 MG PO DAILY Prescribed by: BOSTON HERNANDEZ on 07/17/20 023 Patient Home Medication List Home Medication List Reviewed: Yes Review of Systems Constitutional: no symptoms reported Musculoskeletal: see HPI Skin: no symptoms reported Psychiatric/Neurological: No Symptoms Reported Past Zhvigke-Pssjiw-Htneaw Hx Past Med/Social Hx: Reviewed and Corrections made Patient Social History Alcohol Use: Denies Use Recreational Drug Use: Yes (THC) Drug of Choice: marijuana Smoking Status: Current Everyday Smoker Type Used: Cigarettes 2nd Hand Smoke Exposure: Yes Recent Foreign Travel: No Contact w/Someone Who Travel: No Recent Hopitalizations: No Seasonal Allergies Seasonal Allergies: No Past Medical History Surgeries: Yes (SINUS SURGERY; X 2; LEFT SHOULDER;HYST/BSO;) Appendectomy, Section, Gallbladder, Hysterectomy, Oophorectomy, Orthopedic, Tubal Ligation Respiratory: No Currently Using CPAP: No Currently Using BIPAP: No Cardiac: Yes Hypertension Neurological: Yes TIA 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 Disorders: Yes Female 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 Disorders: Menstrual Problems 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 oz. 133.621720yd; 48.00 BMI Method:Stated General Appearance: no apparent distress, obese Ankles: right ankle normal inspection Feet: right foot other (TENDERNESS TO ENTIRE RIGHT GREAT TOE AND FIRST MTP JOINT, SLIGHT SWELLING TO AREA. NO OBVIOUS ERYTHEMA, BUT DIFFICULT TO DETERMINE FOR CERTAIN, PT IS BLACK. DISTAL MOTOR/VASCULAR/SENSATION INTACT. NO EXTERNAL EVIDENCE OF TRAUMA) Progress/Results/Core Measures Results/Orders Lab Results Laboratory Tests Test 07/17/20 00:32 Range/Units White Blood Count 10.9 4.3-11.0 10^3/uL Red Blood Count 4.01 3.80-5.11 10^6/uL Hemoglobin 12.3 11.5-16.0 g/dL Hematocrit 37 35-52 % Mean Corpuscular Volume 91 80-99 fL Mean Corpuscular Hemoglobin 31 25-34 pg Mean Corpuscular Hemoglobin Concent 34 32-36 g/dL Red Cell Distribution Width 13.9 10.0-14.5 % Platelet Count 342 130-400 10^3/uL Mean Platelet Volume 9.9 9.0-12.2 fL Immature Granulocyte % (Auto) 0 % Neutrophils (%) (Auto) 45 42-75 % Lymphocytes (%) (Auto) 47 H 12-44 % Monocytes (%) (Auto) 6 0-12 % Eosinophils (%) (Auto) 2 0-10 % Basophils (%) (Auto) 0 0-10 % Neutrophils # (Auto) 4.9 1.8-7.8 10^3/uL Lymphocytes # (Auto) 5.1 H 1.0-4.0 10^3/uL Monocytes # (Auto) 0.6 0.0-1.0 10^3/uL Eosinophils # (Auto) 0.2 0.0-0.3 10^3/uL Basophils # (Auto) 0.0 0.0-0.1 10^3/uL Immature Granulocyte # (Auto) 0.0 0.0-0.1 10^3/uL Erythrocyte Sedimentation Rate 61 H 0-20 MM/HR Sodium Level 140 135-145 MMOL/L Potassium Level 2.4 *L 3.6-5.0 MMOL/L Chloride Level 97 L 98-107 MMOL/L Carbon Dioxide Level 30 21-32 MMOL/L Anion Gap 13 5-14 MMOL/L Blood Urea Nitrogen 4 L 7-18 MG/DL Creatinine 0.73 0.60-1.30 MG/DL Estimat Glomerular Filtration Rate > 60 BUN/Creatinine Ratio 5 Glucose Level 129 H 70-105 MG/DL Uric Acid 8.8 H 2.6-7.2 MG/DL Calcium Level 8.9 8.5-10.1 MG/DL My Orders Orders - BOSTON HERNANDEZ DO Foot, Right, 3 View (07/17/20 01:23) Toe(S) (07/17/20 01:23) Basic Metabolic Panel (07/17/20 01:23) Cbc With Automated Diff (07/17/20 01:23) Erythrocyte Sedimentation Rate (07/17/20 01:23) Uric Acid (07/17/20 01:23) Prednisone Tablet (Deltasone Tablet) (07/17/20 02:30) Rx-Hydrocodone/Apap 5-325 Mg (Rx-Vicodin (07/17/20 02:30) Potassium Chloride (Tablet) (Klor Con Ta (07/17/20 02:30) Medications Given in ED Current Medications Medications Dose Ordered Sig/Dhara Route Start Time Stop Time Status Last Admin Dose Admin Acetaminophen/ Hydrocodone Bitart 1 ea Q4H PRN PO 07/17/20 02:30 07/17/20 02:46 DC 07/17/20 02:41 1 EA Potassium Chloride 40 meq ONCE ONCE PO 07/17/20 02:30 07/17/20 02:31 DC 07/17/20 02:41 40 MEQ Prednisone 40 mg ONCE ONCE PO 07/17/20 02:30 07/17/20 02:31 DC 07/17/20 02:41 40 MG Vital Signs/I&O 07/17/20 07/17/20 01:11 02:45 Temp 36.3 Pulse 104 106 Resp 18 20 B/P (MAP) 117/76 (90) 118/70 (90) Pulse Ox 100 100 Progress Progress Note : Progress Note NO PAIN FOR REMAINDER OF ER STAY ICE APPLIED TO AREA AND PT STATES THAT HAS HELPED GREATLY WITH PAIN . Diagnostic Imaging Comments XRAYS RIGHT FOOT AND TOES--NO ACUTE PROCESS, PENDING RADIOLOGIST REVIEW Reviewed: Reviewed by Me Departure Impression Primary Impression: Acute gout Additional Impressions: Pain of right great toe Hyperuricemia Hypokalemia DIURETIC USE Disposition: 01 HOME, SELF-CARE Condition: Stable Departure-Patient Inst. Referrals: [facility]/ (PCP) Primary Care Physician HILL LAWSON APRN (Family) Primary Care Physician Patient Instructions: Gout (DC), Hypokalemia (DC), Lifestyle Changes to Manage Gout, Low Purine Diet, Uric Acid Blood Test Add. Discharge Instructions: ICE AND / OR HEAT TO TOE NEEDED FOR PAIN ELEVATE FOOT MUCH POSSIBLE INCREASE YOUR FLUID INTAKE FOLLOW UP WITH YOUR DR THIS WEEK FOR FURTHER CARE All discharge instructions reviewed with patient and/or family. Voiced understanding. Scripts Prednisone (Prednisone) 20 Mg Tab 40 MG PO DAILY, #6 TAB 0 Refills Prov: DAVID,BOSTON K DO 07/17/20 Colchicine (Colchicine) 0.6 Mg Tablet 0.6 MG PO UD, #6 TAB 1.2 MG AT ONSET OF GOUT FLARE, THEN MAY TAKE 0.6 MG BID Prov: DAVID,BOSTON K DO 07/17/20 Hydrocodone/Acetaminophen (Hydrocodone-Acetamin 5-325 mg) 1 Each Tablet 1 EACH PO Q4-6 HOURS PRN for PAIN, #10 TAB Prov: BOSTON HERNANDEZ DO 07/17/20 BOSTON HERNANDEZ DO Jul 17, 2020 01:34
[2020-07-17 01:47] LABS: BASOPHILS % (AUTO) 0 % (0-10); EOSINOPHILS # (AUTO) 0.2 10^3/uL (0.0-0.3); EOSINOPHILS % (AUTO) 2 % (0-10); HEMATOCRIT 37 % (35-52); HEMOGLOBIN 12.3 g/dL (11.5-16.0); LYMPHOCYTES # (AUTO) 5.1 10^3/uL (1.0-4.0); LYMPHOCYTES % (AUTO) 47 % (12-44); MEAN CORPUSCULAR HEMOGLOBIN 31 pg (25-34); MEAN CORPUSCULAR HGB CONC 34 g/dL (32-36); MEAN CORPUSCULAR VOLUME 91 fL (80-99); MEAN PLATELET VOLUME 9.9 fL (9.0-12.2); MONOCYTES # (AUTO) 0.6 10^3/uL (0.0-1.0); MONOCYTES % (AUTO) 6 % (0-12); NEUTROPHILS # (AUTO) 4.9 10^3/uL (1.8-7.8); NEUTROPHILS % (AUTO) 45 % (42-75); PLATELET COUNT 342 10^3/uL (130-400); WHITE BLOOD COUNT 10.9 10^3/uL (4.3-11.0)
[2020-07-17 01:59] LABS: BUN/CREATININE RATIO 5; CALCIUM 8.9 MG/DL (8.5-10.1); CARBON DIOXIDE 30 MMOL/L (21-32); CHLORIDE 97 MMOL/L (98-107); CREATININE SERUM 0.73 MG/DL (0.60-1.30); GFR ESTIMATED > 60; GLUCOSE 129 MG/DL (70-105); SODIUM 140 MMOL/L (135-145); URIC ACID 8.8 MG/DL (2.6-7.2)
[2020-07-17 02:14] LABS: ERYTHROCYTE SEDIMENTATION RATE 61 MM/HR (0-20)
[2020-07-17 02:15] LABS: POTASSIUM 2.4 MMOL/L (3.6-5.0)
[2020-07-17] MEDS ORDERED: PRD20T PO ×2 (02:19→02:38)
[2020-07-17] MEDS ORDERED: ACHD5005 PO (02:19)
[2020-07-17] MEDS ORDERED: COLC0.6T59 PO ×2 (02:19→02:38)
[2020-07-17] MEDS ORDERED: predniSONE 20 MG TAB PO ONE (02:30)
[2020-07-17] MEDS ORDERED: RX-HYDROCODONE/APAP 5/325 MG #4 TAB PK PO PRN (02:30)
[2020-07-17] MEDS ORDERED: KCL 10 MEQ TAB (MICRO K) PO ONE (02:30)
[2020-07-17 02:45] VITALS: BP 118/70
--- NOTE | 2020-07-17 06:34 | Diagnostic Imaging Report ---
INDICATION: Big toe pain. TECHNIQUE: 3 views of the right foot CORRELATION STUDY: None FINDINGS: The osseous structures of the foot are intact. Joint spaces are maintained. Alignment anatomic. Soft tissues appearing unremarkable. IMPRESSION: 1. Negative for acute findings of the foot. Dictated by: Dictated on workstation # [id number]
--- NOTE | 2020-07-17 06:38 | Diagnostic Imaging Report ---
INDICATION: Big toe pain. TECHNIQUE: 3 views of the toes, 2:19 AM. CORRELATION STUDY: None FINDINGS: Imaging of the toes demonstrates no acute fracture. Alignment anatomic. Joint space maintained. No soft tissue foreign body. IMPRESSION: 1. Negative examination of the toes, right foot. Dictated by: Dictated on workstation # [id number]
== END 2020-07-17 02:46 | disposition home or self-care (01) ==
LOC: EDUNIT# 01:05 → ER 01:08
DX: M10.9 Gout, unspecified (principal); M79.674 Pain in right toe(s); E87.6 Hypokalemia; I10 Essential (primary) hypertension; G89.29 Other chronic pain; M54.9 Dorsalgia, unspecified; E66.01 Morbid (severe) obesity due to excess calories; F17.210 Nicotine dependence, cigarettes, uncomplicated; Z88.5 Allergy status to narcotic agent; Z88.0 Allergy status to penicillin; Z86.73 Personal history of transient ischemic attack (TIA), and cerebral infarction without residual deficits; Z68.42 Body mass index [BMI] 45.0-49.9, adult; Z79.52 Long term (current) use of systemic steroids; Z79.891 Long term (current) use of opiate analgesic; Z79.899 Other long term (current) drug therapy
CPT/HCPCS: 36415; 73630; 73660; 80048; 84550; 85025; 85652

== ENCOUNTER → 2022-02-05 | Outpatient (CLI) | payer MEDICAID ==
[~2022-02-05] VITALS: Ht 165 cm; Wt 134.0 kg
[~2022-02-05] MED LIST changes: +ACHD5005 PO; -CLIN150C17 PO; +CLIN150C20 PO; +COLC0.6T59 PO; +PRD20T PO; +SERT-413; -SERT50TA9
== END | disposition home or self-care (01) ==
LOC: PREOP 05:36
PROVIDERS: ATTEND Surgery
DX: Z01.818 Encounter for other preprocedural examination (principal)

== ENCOUNTER 2022-02-17 07:27 | Day surgery (SDC) | payer MEDICAID ==
[~2022-02-17] VITALS: Ht 165 cm; Wt 134.0 kg
[~2022-02-17 07:27] MED LIST changes: +LISI1TAB44 PO
[2022-02-17] MEDS ORDERED: LACTATED RINGERS 1,000 ML IV ONE (07:31)
[2022-02-17] MEDS ORDERED: LACTATED RINGERS 1,000 ML IV STA (07:33)
[2022-02-17 07:45] VITALS: BP 154/103
[2022-02-17] MEDS ORDERED: PROPOFOL INJECTION 50 ML IV ONE (07:49)
[2022-02-17] MEDS ORDERED: MIDAZOLAM 2 MG/2 ML (VERSED) VIAL ONE (07:49)
[2022-02-17 09:30] VITALS: BP 150/94
[2022-02-17 09:35] VITALS: BP 161/86
--- NOTE | 2022-02-17 09:37 | Anesthesia-General Post-Op ---
MAC Patient Condition Mental Status/LOC: Same as Preop Cardiovascular: Satisfactory Nausea/Vomiting: Absent Respiratory: Satisfactory Pain: Controlled Complications: Absent Post Op Complications Complications None Follow Up Care/Instructions Patient Instructions None needed. Anesthesiology Discharge Order Discharge Order Patient is doing well, no complaints, stable vital signs, no apparent adverse anesthesia problems. No complications reported per nursing. MALDONADO DAHL CRNA Feb 17, 2022 09:37
[2022-02-17 09:40] VITALS: BP 161/86
[2022-02-17 09:57] VITALS: BP 161/86
--- NOTE | 2022-02-17 17:52 | OPERATIVE REPORT ---
DATE OF SERVICE: 02/17/2022 PREOPERATIVE DIAGNOSIS: Family history of colon cancer. POSTOPERATIVE DIAGNOSES: Colon polyps, diverticulosis. PROCEDURE: Colonoscopy with snare polypectomy x1 and hot biopsy polypectomy x2. SURGEON: Ruby Machado DO ANESTHESIA: Per ALUMINUM POURER. ESTIMATED BLOOD LOSS: None. COMPLICATIONS: None. INDICATIONS: The patient is a 46-year-old female needing colonoscopy due to family history of colon cancer. She understands risks and benefits of procedure and wishes to proceed. Consent was signed in the chart. DESCRIPTION OF PROCEDURE: The patient was taken to the endoscopy suite, placed in left lateral recumbent position. Timeout was performed. Digital rectal exam was performed. No palpable polyps, masses or ulcerations. Scope was inserted in the rectum and advanced all the way to cecum with minimal difficulty. Prep was adequate with irrigation and suction. Scope was slowly retracted back. No polyps, masses or ulcerations in the cecum, ascending, transverse and descending colon. In the sigmoid colon, some diverticulosis is present. Also, a polyp was present, which snare polypectomy was performed. This was obtained for specimen. Scope was then continuously retracted back. Small polyp was present, which hot biopsy polypectomy was performed in the sigmoid colon. Scope was then continuously retracted back into the rectum where another small polyp was present, which hot biopsy polypectomy was performed. Scope was retroflexed noting no other pathology. Scope was returned to its normal position, slowly withdrawn until completely removed. RECOMMENDATIONS: Due to diverticulosis, would recommend high fiber diet. The patient will need to followup on pathology in two weeks. Then, we will discuss pathology. She will need repeat colonoscopy in five years due to family history of colon cancer and history of polyps. Any issues before that be seen at that time. Job ID: [id number] DocumentID: [id number] Dictated Date: 02/17/2022 10:03:23 Showcase Trimmer Date: 02/17/2022 17:51:38 Dictated By: RUBY MACHADO DO
== END 2022-02-17 10:00 | disposition home or self-care (01) ==
LOC: ENDO 07:27
PROVIDERS: ATTEND Surgery
DX: Z12.11 Encounter for screening for malignant neoplasm of colon (principal); D12.5 Benign neoplasm of sigmoid colon; K63.5 Polyp of colon; K62.1 Rectal polyp; K57.30 Diverticulosis of large intestine without perforation or abscess without bleeding; E66.01 Morbid (severe) obesity due to excess calories; Z68.42 Body mass index [BMI] 45.0-49.9, adult; F17.210 Nicotine dependence, cigarettes, uncomplicated; Z28.311 Partially vaccinated for COVID-19; Z80.0 Family history of malignant neoplasm of digestive organs
CPT/HCPCS: 88305

== ENCOUNTER 2022-06-24 23:39 | Inpatient (IN) | payer MEDICAID ==
[~2022-06-24] VITALS: Ht 165.1 cm; Wt 130.7 kg
[2022-06-25] VITALS (20 sets, daily range): BP systolic 120–187; BP diastolic 87–142
[2022-06-25] MEDS ORDERED: cloNIDine 0.1 MG (CATAPRES) TAB PO PRN (02:15)
[2022-06-25] MEDS ORDERED: methylPREDNISolone 40 MG/ML (Solu-MEDROL) VIAL IV SCH (02:30)
[2022-06-25 03:47] LABS: ABG OXYGEN SATURATION 70 % (94-100); ABG PCO2 46 MMHG (35-45); ABG PH 7.42 (7.37-7.43); ABG PO2 42 MMHG (79-93); ABG TCO2 30.9 MMOL/L (21.0-31.0)
[2022-06-25 03:48] LABS: ALLENS TEST YES-POS; INSPIRED O2 30%; PATIENT TEMP 36.5; VENTILATOR NO
[2022-06-25] MEDS ORDERED: RT-ALBUTEROL/IPRATROPIUM 3 ML (DUONEB) VIAL INH PRN (04:30)
[2022-06-25 05:06] LABS: BASOPHILS % (AUTO) 0 % (0-10); EOSINOPHILS % (AUTO) 0 % (0-10); HEMATOCRIT 38 % (35-52); HEMOGLOBIN 12.7 g/dL (11.5-16.0); LYMPHOCYTES # (AUTO) 1.7 10^3/uL (1.0-4.0); LYMPHOCYTES % (AUTO) 18 % (12-44); MEAN CORPUSCULAR HEMOGLOBIN 29 pg (25-34); MEAN CORPUSCULAR HGB CONC 33 g/dL (32-36); MEAN CORPUSCULAR VOLUME 87 fL (80-99); MEAN PLATELET VOLUME 10.7 fL (9.0-12.2); MONOCYTES # (AUTO) 0.1 10^3/uL (0.0-1.0); MONOCYTES % (AUTO) 1 % (0-12); NEUTROPHILS # (AUTO) 7.4 10^3/uL (1.8-7.8); NEUTROPHILS % (AUTO) 80 % (42-75); PLATELET COUNT 312 10^3/uL (130-400); WHITE BLOOD COUNT 9.3 10^3/uL (4.3-11.0)
[2022-06-25 05:29] LABS: BILIRUBIN,TOTAL 0.5 MG/DL (0.1-1.0); CALCIUM 9.4 MG/DL (8.5-10.1); CREATININE SERUM 0.81 MG/DL (0.60-1.30); POTASSIUM 3.2 MMOL/L (3.6-5.0); TOTAL PROTEIN 8.3 GM/DL (6.4-8.2)
[2022-06-25] MEDS: methylPREDNISolone 40 MG/ML (Solu-MEDROL) VIAL IV SCH ×3 (05:32→17:43)
[2022-06-25] MEDS ORDERED: KCL 20 MEQ TAB (K-DUR) PO NR (08:00)
[2022-06-25] MEDS ORDERED: FUROSEMIDE 40 MG/4 ML INJ (LASIX) IVP NR (08:00)
[2022-06-25] MEDS: RT-ALBUTEROL/IPRATROPIUM 3 ML (DUONEB) VIAL INH SCH ×3 (08:19→21:18)
--- NOTE | 2022-06-25 08:44 | History & Physical ---
CHAR LY 06/25/22 0844: HPI History of Present Illness: Patient is a 46 y/o female who presented for cough, dyspnea, and wheezing. Patient states she had a fever starting on 06/20/2022. The respiratory symptoms started suddenly on 06/24/2022. She has never had anything this severe happen in the past, but she did feel mild sob and wheezing after she contracted COVID. Patient states her son was positive for the flu 06/16/2022 so she presumed she had contracted the flu as well. She was tested for flu and COVID in [place], we do not have those results at this time. Patient reports she is feeling much better and would like to try to get off of BIPAP if possible. Source: patient Exam Limitations: other (on BIPAP) Date seen by provider: Jun 25, 2022 Time Seen by Provider: 08:20 Attending Physician Center/[facility] PCP Admitting Physician: Charlotte Le MD Attending Physician: Charlotte Le MD Consult Date of Admission Jun 25, 2022 at 01:30 Home Medications Home Medications Reviewed patient Home Medication Reconciliation performed by pharmacy medication reconciliations oil refinery process technician and/or nursing. Patients Allergies have been reviewed. Allergies Coded Allergies: morphine (Unverified Allergy, Unknown, 07/17/20) Penicillins (Verified Adverse Reaction, Mild, 07/17/20) high fever WDP-[id number]-Xmvzop Hx Patient Social History Drug of Choice: marijuana Cigaretts per day: 0 2nd Hand Smoke Exposure: No Recent Hopitalizations: No Alcohol Use?: No Substance type: Marijuana Have you traveled recently?: No Immunizations Up To Date Influenza Vaccine Up-to-Date: No; Not Current First/Initial COVID19 Vaccinat: 10-07 Second COVID19 Vaccination Cas: 12-07 Third COVID19 Vaccination Date: 10-[address] Painter Helper: Innoz Past Medical History Diabetes, hypertension, hyperlipidemia Family Medical History Significant Family History: Cancer (mom-colon cancer), Renal Disease (Maternal grandfather), Other Conditions/Hx (sister-SLE; brother-bells palsy) Review of Systems ([facility]) Respiratory: cough, phlegm, short of breath, wheezing Cardiovascular: No chest pain, No edema, No Hx of Intervention Gastrointestinal: No diarrhea, No nausea, No vomiting Genitourinary: no symptoms reported Reviewed Test Results Reviewed Test Results Lab Laboratory Tests Test 06/25/22 03:30 06/25/22 04:45 Range/Units Blood Gas Puncture Site RIGHT RADIAL Blood Gas Patient Temperature 36.5 Arterial Blood pH 7.42 7.37-7.43 Arterial Blood Partial Pressure CO2 46 H 35-45 MMHG Arterial Blood Partial Pressure O2 42 L 79-93 MMHG Arterial Blood HCO3 30 H 23-27 MMOL/L Arterial Blood Total CO2 30.9 21.0-31.0 MMOL/L Arterial Blood Oxygen Saturation 70 L 94-100 % Arterial Blood Base Excess 5.0 H -2.5-2.5 MMOL/L Ken Test YES-POS Blood Gas Ventilator Setting NO Blood Gas Inspired Oxygen 30% White Blood Count 9.3 4.3-11.0 10^3/uL Red Blood Count 4.39 3.80-5.11 10^6/uL Hemoglobin 12.7 11.5-16.0 g/dL Hematocrit 38 35-52 % Mean Corpuscular Volume 87 80-99 fL Mean Corpuscular Hemoglobin 29 25-34 pg Mean Corpuscular Hemoglobin Concent 33 32-36 g/dL Red Cell Distribution Width 14.5 10.0-14.5 % Platelet Count 312 130-400 10^3/uL Mean Platelet Volume 10.7 9.0-12.2 fL Immature Granulocyte % (Auto) 0 % Neutrophils (%) (Auto) 80 H 42-75 % Lymphocytes (%) (Auto) 18 12-44 % Monocytes (%) (Auto) 1 0-12 % Eosinophils (%) (Auto) 0 0-10 % Basophils (%) (Auto) 0 0-10 % Neutrophils # (Auto) 7.4 1.8-7.8 10^3/uL Lymphocytes # (Auto) 1.7 1.0-4.0 10^3/uL Monocytes # (Auto) 0.1 0.0-1.0 10^3/uL Eosinophils # (Auto) 0.0 0.0-0.3 10^3/uL Basophils # (Auto) 0.0 0.0-0.1 10^3/uL Immature Granulocyte # (Auto) 0.0 0.0-0.1 10^3/uL Sodium Level 140 135-145 MMOL/L Potassium Level 3.2 L 3.6-5.0 MMOL/L Chloride Level 102 98-107 MMOL/L Carbon Dioxide Level 23 21-32 MMOL/L Anion Gap 15 H 5-14 MMOL/L Blood Urea Nitrogen 8 7-18 MG/DL Creatinine 0.81 0.60-1.30 MG/DL Estimat Glomerular Filtration Rate 90 BUN/Creatinine Ratio 10 Glucose Level 166 H 70-105 MG/DL Calcium Level 9.4 8.5-10.1 MG/DL Corrected Calcium 9.4 8.5-10.1 MG/DL Total Bilirubin 0.5 0.1-1.0 MG/DL Aspartate Amino Transf (AST/SGOT) 31 5-34 U/L Alanine Aminotransferase (ALT/SGPT) 30 0-55 U/L Alkaline Phosphatase 131 40-136 U/L B-Type Natriuretic Peptide 161.2 H <100.0 PG/ML Total Protein 8.3 H 6.4-8.2 GM/DL Albumin 4.0 3.2-4.5 GM/DL Radiology Chest Xray: cardiomegaly, central dominant pulmonary opacities, aeration mildly improved compare to study done in [place] before transfer. ECHO: EF 55-60%, grade 1 diastolic dysfunction, mild mitral regurgitation Physical Exam-([facility]) Physical Exam Vital Signs VS - Last 72 Hours, by Label 06/25/22 06/25/22 06/25/22 06/25/22 01:30 01:35 01:35 01:45 Temp 36.5 Pulse 105 105 101 Resp 32 B/P (MAP) 187/142 (157) 146/119 (128) Pulse Ox 97 100 100 O2 Delivery NIV Bilevel Nasal Cannula Nasal Cannula O2 Flow Rate 30.00 30.00 FiO2 30 06/25/22 06/25/22 06/25/22 06/25/22 02:00 02:15 02:30 02:45 Pulse 100 100 99 98 Resp 38 39 39 35 B/P (MAP) 151/102 (118) 151/103 (119) 162/121 (135) 156/114 (128) Pulse Ox 97 98 99 97 O2 Delivery Nasal Cannula Nasal Cannula Nasal Cannula Nasal Cannula O2 Flow Rate 30.00 30.00 30.00 30.00 06/25/22 06/25/22 06/25/22 06/25/22 03:00 03:30 04:00 04:00 Temp 36.8 Pulse 99 100 95 Resp 28 23 30 B/P (MAP) 161/112 (128) 146/99 (115) 137/94 (108) Pulse Ox 96 97 96 O2 Delivery Nasal Cannula Nasal Cannula Nasal Cannula O2 Flow Rate 30.00 30.00 30.00 06/25/22 06/25/22 06/25/22 06/25/22 04:12 04:30 05:00 06:00 Pulse 96 95 92 87 Resp 33 27 26 B/P (MAP) 127/89 (102) 135/89 (104) 128/87 (101) Pulse Ox 97 93 99 96 O2 Delivery Nasal Cannula Nasal Cannula Nasal Cannula O2 Flow Rate 30.00 30.00 30.00 FiO2 30 06/25/22 06/25/22 06/25/22 06/25/22 06:57 07:00 08:00 08:00 Temp 37.3 Pulse 97 96 97 Resp 36 28 B/P (MAP) 135/98 (110) 139/99 (112) Pulse Ox 95 97 98 O2 Delivery NIV Bilevel NIV Bilevel NIV Bilevel O2 Flow Rate 30.00 30.00 FiO2 30 06/25/22 06/25/22 06/25/22 06/25/22 08:24 09:00 11:50 12:00 Temp 36.5 Pulse 98 111 91 106 Resp 33 30 20 32 B/P (MAP) 149/99 (116) 131/88 (102) 133/94 (107) Pulse Ox 97 97 92 95 O2 Delivery NIV Bilevel Room Air Room Air O2 Flow Rate 30.00 30.00 06/25/22 06/25/22 06/25/22 06/25/22 13:00 13:30 15:36 16:15 Temp 36.2 Pulse 107 105 Resp 24 B/P (MAP) 120/89 (99) Pulse Ox 91 95 O2 Delivery Room Air Room Air Capillary Refill : General Appearance: no apparent distress HEENT: other (on BIPAP) Respiratory: lungs clear, normal breath sounds, no respiratory distress, no accessory muscle use Cardiovascular: regular rate, rhythm, no edema, no gallop, no murmur Gastrointestinal: normal bowel sounds, non tender, soft Skin: normal color, warm/dry Assessment/Plan Assessment/Plan Admission Status: Inpatient Order (span 2 midnights) Assessment & Plan Diet: heart healthy DVT prophylaxis: enoxiparin Code status: full code Dispo: inpatient (1) Flash pulmonary edema Status: Acute Assessment & Plan: Chest Xray obtained: cardiomegaly, central dominant pulm onary opacities, aeration mildly improved compared to Chest Xray obtained in [place]. ECHO completed: grade 1 diastolic dysfunction, 55-60% EF, mild mitral reguritation Patient given solu-medrol, lasix, clonidine, albuterol. Patient reports breathing much improved on this regimen, wanting to get off of the BIPAP. Trialed off of BIPAP. Patient doing well on room air. (2) Respiratory failure Status: Acute Assessment & Plan: See above. Qualifiers: Qualified Codes: J96.01 - Acute respiratory failure with hypoxia; J96.02 - Acute respiratory failure with hypercapnia (3) Diabetes mellitus Status: Chronic Assessment & Plan: Patient takes metformin at home. Will monitor blood glucose. Qualifiers: Qualified Codes: E11.9 - Type 2 diabetes mellitus without complications (4) Hypertension Status: Chronic Assessment & Plan: Patient on HCTZ, lisinopril, lasix, and potassium at home. Will continue home meds and monitor. Qualifiers: Qualified Codes: I10 - Essential (primary) hypertension (5) Hyperlipidemia Status: Chronic Assessment & Plan: Patient on atorvastatin at home. Qualifiers: Qualified Codes: E78.5 - Hyperlipidemia, unspecified CHARLOTTE LE MD 06/25/221911: Home Medications Allergies Coded Allergies: morphine (Unverified Allergy, Unknown, 07/17/20) Penicillins (Verified Adverse Reaction, Mild, 07/17/20) high fever Review of Systems ([facility]) Constitutional: malaise Supervisory-Addendum Brief Verification & Attestation Participated in pt care: history, MDM, physical Personally performed: exam, history, MDM, supervision of care Care discussed with: Medical Student Procedures: n/a Pt seen and examined by me along with OMS4 Char Ly, I did my own history as well which confirms that documented by the medical student. I directed the plan of care as documented. CHAR LY Jun 25, 2022 08:44 CHARLOTTE LE MD Jun 25, 2022 19:12
--- NOTE | 2022-06-25 09:15 | Consultation-Cardiology ---
HPI-Cardiology Cardiology Consultation: Date of Consultation 06/25/22 Time Seen by a Provider: 08:45 Date of Admission 06-24-22 Attending Physician [place] Admitting Physician Admitting Physician: Charlotte Le MD Attending Physician: Charlotte Le MD Consulting Physician Rohan Marquez MD HPI: Chief Complaint: Progressive dyspnea Tachycardia Ms. Santana is a 46 yr old female admitted to [facility] from [facility] with increasing SOB. She reports she a few days ago she became ill with a fever, chills at home. Reports son had the flu. She reports yesterday she began to have increasing SOB and palpitations which prompted her to come to the ED. She denies any c/o CP, syncope, near syncope or LE swelling. She reports she has sleep apnea, but is non-compliant with her CPAP. She is currently on Bi-pap tx. She feels her SOB is improving. Review of Systems-Cardiology Review of Systems Constitutional: As described under HPI Eyes: No vision change Ears/Nose/Throat: No epistaxis, No recent hearing loss Respiratory: As described under HPI Cardiovascular: As described under HPI Gastrointestinal: No constipation, No diarrhea, No nausea, No vomiting Genitourinary: No dysuria, No hematuria Musculoskeletal: no symptoms reported Skin: No rash on exposed areas, No ulcerations on exposed areas Psychiatric/Neurological: No anxiety, No depression, No seizure, No focal weakness, No syncope Hematologic: No bleeding abnormalities BOW-Njzegv-[id number] Hx Patient Social History Cigaretts per day: 0 2nd Hand Smoke Exposure: No Have you traveled recently?: No Alcohol Use?: No Substance type: Marijuana Pt feels they are or have been: No Past Medical History PMH As described under Assessment. Family Medical History Family Medical History: She reports her mother had CAD. Allergies and Home Medications Allergies Coded Allergies: morphine (Unverified Allergy, Unknown, 07/17/20) Penicillins (Verified Adverse Reaction, Mild, 07/17/20) high fever Patient Home Medication List Atorvastatin Calcium (Atorvastatin Calcium) 20 Mg Tablet, 20 MG PO 1800, (Reported) Entered as Reported by: MARTIN MUÑOZ on 06/25/22 114 Last Action: Continued Cariprazine Hydrochloride (Vraylar) 3 Mg Capsule, 3 MG PO DAILY, (Reported) Entered as Reported by: MARTIN MUÑOZ on 06/25/22 1147 Last Action: Held Lisinopril/Hydrochlorothiazide (Lisinopril-Hctz 10-12.5 mg Tab) 10 Mg-12.5 Mg Tablet, 1 EACH PO 1530, (Reported) Entered as Reported by: RANJEET LOPEZ on 02/13/22 1351 Last Action: Reviewed Metformin HCl (Metformin HCl ER) 500 Mg Tab.er.24h, 500 MG PO 1800, (Reported) Entered as Reported by: MARTIN MUÑOZ on 06/25/22 1147 Last Action: Held Discontinued Medications Peg/Electrolytes (Golytely Solution) 4,000 Ml Soln, 4,000 ML PO UD Discontinued Reason: No Longer Taking Prescribed by: MEHUL FRAZIER on 06/27/20 1105 Last Action: Discontinued Physical Exam-Cardiology Physical Exam Vital Signs/I&O 06/25/22 06/26/22 06/26/22 06/26/22 21:18 00:00 03:06 04:13 Temp 36.7 36.7 Pulse 96 89 Resp 18 18 B/P (MAP) 118/72 (87) 123/79 (94) Pulse Ox 92 96 93 97 O2 Delivery Nasal Cannula Nasal Cannula Nasal Cannula Nasal Cannula O2 Flow Rate 2.00 2.00 2.00 2.00 2.00 2.00 06/26/22 06/26/22 06/26/22 08:00 08:40 08:44 Temp 35.6 Pulse 77 Resp 18 B/P (MAP) 120/81 (94) Pulse Ox 96 96 O2 Delivery Nasal Cannula Nasal Cannula Nasal Cannula O2 Flow Rate 3.00 2.00 1.00 06/26/22 00:00 Intake Total 1270 ml Output Total 1900 ml Balance -630 ml Capillary Refill : Constitutional: AAO x 3, well-developed, well-nourished HEENT: hard of hearing; No oral hygience is good (poor dentition) Neck: No carotid bruit; carotid pulses are 2 + bilaterally Respiratory: No accessory muscle use, No respiratory distress; chest expansion is symmetric, chest is bilaterally symmetric, rhonchi, other (diminished throughout) Cardiovascular: tachycardia Gastrointestinal: No tender; soft; No guarding; audible bowel sounds Extremities: no lower extremity edema bilateral Neurologic/Psychiatric: grossly intact (moves all extremities) Skin: No rash on exposed areas, No ulcerations on exposed areas Data Review Labs Laboratory Tests 06/26/22 05:51: White Blood Count 14.3H, Red Blood Count 4.52, Hemoglobin 13.5, Hematocrit 40, Mean Corpuscular Volume 87, Mean Corpuscular Hemoglobin 30, Mean Corpuscular Hemoglobin Concent 34, Red Cell Distribution Width 14.8H, Platelet Count 347, Mean Platelet Volume 10.6, Sodium Level 139, Potassium Level 3.4L, Chloride Level 99, Carbon Dioxide Level 27, Anion Gap 13, Blood Urea Nitrogen 19H, Creatinine 0.96, Estimat Glomerular Filtration Rate 73, BUN/Creatinine Ratio 20, Glucose Level 155H, Calcium Level 9.8 A/P-Cardiology Assessment/Admission Diagnosis ?Pneumonia HTN HLD DM 2 ADARSH - non-compliant with CPAP tx Marijuana usage - last usage yesterday Reports h/o TIA in 2017 Exercise stress test [place] [address] Mike - no evidence of ischemia HILL SMITH Jun 25, 2022 09:15
[2022-06-25] MEDS: lisINopril 10 MG (PRINIVIL) TABLET PO SCH (09:16)
[2022-06-25] MEDS: HydroCHLOROthiazide CAP/TABLET 12.5 MG TAB PO SCH (09:16)
--- NOTE | 2022-06-25 09:27 | Diagnostic Imaging Report ---
HISTORY: Respiratory failure COMPARISON: 06/24/2022 from outside facility. TECHNIQUE: Frontal view of the chest. FINDINGS: There is moderate cardiomegaly. There are central dominant airspace and interstitial opacities. There is no large effusion or pneumothorax seen. Overall aeration appears mildly improved. IMPRESSION: 1. Cardiomegaly with central dominant pulmonary opacities, likely due to edema, possibly infection. Aeration appears mildly improved. Dictated by: Dictated on workstation # [id number]
[2022-06-25] MEDS ORDERED: ATOR20TA66 PO (11:47)
[2022-06-25] MEDS ORDERED: CARI3CAP PO (11:47)
[2022-06-25] MEDS ORDERED: METF-865 PO (11:47)
[2022-06-25] MEDS ORDERED: FLU QUADRIvalent (6 months+) 60 mcg/0.5 ml 2022-23 (Fluzone) IM ONE (14:15)
--- NOTE | 2022-06-25 16:37 | Consultation-Cardiology ---
HPI-Cardiology Cardiology Consultation: Date of Consultation 06/25/22 Time Seen by a Provider: 13:00 Date of Admission Attending Physician [facility] Admitting Physician Admitting Physician: Charlotte Le MD Attending Physician: Charlotte Le MD Consulting Physician CASE MONTOYA MD, MA, FACP, FACC, [facility], [facility] Physician requesting consult: Dr Le HPI: Chief Complaint: Reason for Card consult: Shortness of breath Ms. Santana is a 46 yr old female admitted to [facility] from [facility] with increasing SOB. She reports she a few days ago she became ill with a fever, chills at home. Reports son had the flu. She reports yesterday she began to have increasing SOB and palpitations which prompted her to come to the ED. She denies any c/o CP, syncope, near syncope or LE swelling. She reports she has sleep apnea, but is non-compliant with her CPAP. She is currently on Bi-pap tx. She feels her SOB is improving. Review of Systems-Cardiology Review of Systems Constitutional: As described under HPI Eyes: No vision change Ears/Nose/Throat: No epistaxis, No recent hearing loss Respiratory: As described under HPI Cardiovascular: As described under HPI Gastrointestinal: No constipation, No diarrhea, No nausea, No vomiting Genitourinary: No dysuria, No hematuria Musculoskeletal: no symptoms reported Skin: No rash on exposed areas, No ulcerations on exposed areas Psychiatric/Neurological: No anxiety, No depression, No seizure, No focal weakness, No syncope Hematologic: No bleeding abnormalities [id number] Hx Patient Social History Cigaretts per day: 0 2nd Hand Smoke Exposure: No Have you traveled recently?: No Alcohol Use?: No Substance type: Marijuana Pt feels they are or have been: No Past Medical History PMH As described under Assessment. Family Medical History Family Medical History: She reports her mother had CAD. Allergies and Home Medications Allergies Coded Allergies: morphine (Unverified Allergy, Unknown, 07/17/20) Penicillins (Verified Adverse Reaction, Mild, 07/17/20) high fever Patient Home Medication List Home Medication List Reviewed: Yes Atorvastatin Calcium (Atorvastatin Calcium) 20 Mg Tablet, 20 MG PO 1800, (Reported) Entered as Reported by: MARTIN MUÑOZ on 06/25/22 1147 Last Action: Reviewed Cariprazine Hydrochloride (Vraylar) 3 Mg Capsule, 3 MG PO DAILY, (Reported) Entered as Reported by: MARTIN MUÑOZ on 06/25/22 1147 Last Action: Reviewed Lisinopril/Hydrochlorothiazide (Lisinopril-Hctz 10-12.5 mg Tab) 10 Mg-12.5 Mg Tablet, 1 EACH PO 1530, (Reported) Entered as Reported by: RANJEET LOPEZ on 02/13/22 1351 Last Action: Reviewed Metformin HCl (Metformin HCl ER) 500 Mg Tab.er.24h, 500 MG PO 1800, (Reported) Entered as Reported by: MARTIN MUÑOZ on 06/25/22 1147 Last Action: Reviewed Discontinued Medications Peg/Electrolytes (Golytely Solution) 4,000 Ml Soln, 4,000 ML PO UD Discontinued Reason: No Longer Taking Prescribed by: MEHUL FRAZIER on 06/27/20 1105 Last Action: Discontinued Physical Exam-Cardiology Physical Exam Vital Signs/I&O 06/25/22 06/25/22 06/25/22 06/25/22 05:00 06:00 06:57 07:00 Pulse 92 87 97 96 Resp 27 26 36 B/P (MAP) 135/89 (104) 128/87 (101) 135/98 (110) Pulse Ox 99 96 95 O2 Delivery Nasal Cannula Nasal Cannula NIV Bilevel O2 Flow Rate 30.00 30.00 30.00 06/25/22 06/25/22 06/25/22 06/25/22 08:00 08:00 08:24 09:00 Temp 37.3 Pulse 97 98 111 Resp 28 33 30 B/P (MAP) 139/99 (112) 149/99 (116) Pulse Ox 97 98 97 97 O2 Delivery NIV Bilevel NIV Bilevel NIV Bilevel O2 Flow Rate 30.00 30.00 30.00 FiO2 30 06/25/22 06/25/22 06/25/22 06/25/22 11:50 12:00 13:00 13:30 Temp 36.5 Pulse 91 106 107 105 Resp 20 32 24 B/P (MAP) 131/88 (102) 133/94 (107) 120/89 (99) Pulse Ox 92 95 91 O2 Delivery Room Air Room Air Room Air 06/25/22 06/25/22 15:36 16:15 Temp 36.2 Pulse Ox 95 O2 Delivery Room Air Capillary Refill : Constitutional: AAO x 3, well-developed, well-nourished HEENT: hard of hearing; No oral hygience is good (poor dentition) Neck: No carotid bruit; carotid pulses are 2 + bilaterally Respiratory: No accessory muscle use, No respiratory distress; chest expansion is symmetric, chest is bilaterally symmetric, rhonchi, other (diminished throughout) Cardiovascular: tachycardia Gastrointestinal: No tender; soft; No guarding; audible bowel sounds Extremities: no lower extremity edema bilateral Neurologic/Psychiatric: grossly intact (moves all extremities) Skin: No rash on exposed areas, No ulcerations on exposed areas Data Review Labs Laboratory Tests 06/25/22 03:30: Blood Gas Puncture Site RIGHT RADIAL, Blood Gas Patient Temperature 36.5, Arterial Blood pH 7.42, Arterial Blood Partial Pressure CO2 46H, Arterial Blood Partial Pressure O2 42L, Arterial Blood HCO3 30H, Arterial Blood Total CO2 30.9, Arterial Blood Oxygen Saturation 70L, Arterial Blood Base Excess 5.0H, Ken Test YES-POS, Blood Gas Ventilator Setting NO, Blood Gas Inspired Oxygen 30% 06/25/22 04:45: White Blood Count 9.3, Red Blood Count 4.39, Hemoglobin 12.7, Hematocrit 38, Mean Corpuscular Volume 87, Mean Corpuscular Hemoglobin 29, Mean Corpuscular Hemoglobin Concent 33, Red Cell Distribution Width 14.5, Platelet Count 312, Mean Platelet Volume 10.7, Immature Granulocyte % (Auto) 0, Neutrophils (%) (Auto) 80H, Lymphocytes (%) (Auto) 18, Monocytes (%) (Auto) 1, Eosinophils (%) (Auto) 0, Basophils (%) (Auto) 0, Neutrophils # (Auto) 7.4, Lymphocytes # (Auto) 1.7, Monocytes # (Auto) 0.1, Eosinophils # (Auto) 0.0, Basophils # (Auto) 0.0, Immature Granulocyte # (Auto) 0.0, Sodium Level 140, Potassium Level 3.2L, Chl oride Level 102, Carbon Dioxide Level 23, Anion Gap 15H, Blood Urea Nitrogen 8, Creatinine 0.81, Estimat Glomerular Filtration Rate 90, BUN/Creatinine Ratio 10, Glucose Level 166H, Calcium Level 9.4, Corrected Calcium 9.4, Total Bilirubin 0.5, Aspartate Amino Transf (AST/SGOT) 31, Alanine Aminotransferase (ALT/SGPT) 30, Alkaline Phosphatase 131, B-Type Natriuretic Peptide 161.2H, Total Protein 8.3H, Albumin 4.0 A/P-Cardiology Assessment/Admission Diagnosis Shortness of breath: Pneumonia vs ac diastolic CHF - Echo on 06/25/22: LVEF 55-60%, grade 1 diastolic dysfunction, mild MR HTN HLD DM 2 ADARSH - non-compliant with CPAP tx Marijuana usage - last usage yesterday Reports h/o TIA in 2016 Exercise stress test [place] [address] Mike - no evidence of ischemia Discussion and Recomendations * Diuretics as needed * Consider empiric therapy for pneumonia (Med svce) * Adjust meds as needed for bp control * DVT prophylaxis * Monitor labs CASE MONTOYA MD [facility] Jun 25, 2022 16:37
[2022-06-25] MEDS: ENOXAPARIN 40 MG/0.4 ML (LOVENOX) SYR SC SCH (17:43)
[2022-06-26] VITALS: BP 118/72
[2022-06-26] MEDS: methylPREDNISolone 40 MG/ML (Solu-MEDROL) VIAL IV SCH ×3 (00:16→12:30)
[2022-06-26] MEDS: RT-ALBUTEROL/IPRATROPIUM 3 ML (DUONEB) VIAL INH SCH ×2 (03:06→08:40)
[2022-06-26 04:13] VITALS: BP 123/79
[2022-06-26] MEDS: ENOXAPARIN 40 MG/0.4 ML (LOVENOX) SYR SC SCH (05:55)
[2022-06-26 06:28] LABS: HEMATOCRIT 40 % (35-52); HEMOGLOBIN 13.5 g/dL (11.5-16.0); MEAN CORPUSCULAR HEMOGLOBIN 30 pg (25-34); MEAN CORPUSCULAR HGB CONC 34 g/dL (32-36); MEAN CORPUSCULAR VOLUME 87 fL (80-99); MEAN PLATELET VOLUME 10.6 fL (9.0-12.2); PLATELET COUNT 347 10^3/uL (130-400); WHITE BLOOD COUNT 14.3 10^3/uL (4.3-11.0)
[2022-06-26 06:43] LABS: POTASSIUM 3.4 MMOL/L (3.6-5.0)
[2022-06-26 06:45] LABS: CALCIUM 9.8 MG/DL (8.5-10.1)
[2022-06-26 06:49] LABS: CREATININE SERUM 0.96 MG/DL (0.60-1.30)
[2022-06-26 08:00] VITALS: BP 120/81
[2022-06-26] MEDS ORDERED: KCL 20 MEQ TAB (K-DUR) PO NR (08:00)
[2022-06-26] MEDS: HydroCHLOROthiazide CAP/TABLET 12.5 MG TAB PO SCH (08:44)
[2022-06-26] MEDS: lisINopril 10 MG (PRINIVIL) TABLET PO SCH (08:44)
--- NOTE | 2022-06-26 09:13 | Progress Note - Cardiology ---
Cardiology SOAP Progress Note Subjective: Sitting up in bed eating breakfast States her breathing is better, but not yet back to baseline No c/o CP or palpitations Objective: I&O/Vital Signs 06/25/22 06/26/22 06/26/22 06/26/22 21:18 00:00 03:06 04:13 Temp 36.7 36.7 Pulse 96 89 Resp 18 18 B/P (MAP) 118/72 (87) 123/79 (94) Pulse Ox 92 96 93 97 O2 Delivery Nasal Cannula Nasal Cannula Nasal Cannula Nasal Cannula O2 Flow Rate 2.00 2.00 2.00 2.00 2.00 2.00 06/26/22 06/26/22 06/26/22 08:00 08:40 08:44 Temp 35.6 Pulse 77 Resp 18 B/P (MAP) 120/81 (94) Pulse Ox 96 96 O2 Delivery Nasal Cannula Nasal Cannula Nasal Cannula O2 Flow Rate 3.00 2.00 1.00 06/26/22 00:00 Intake Total 1270 ml Output Total 1900 ml Balance -630 ml Weight (Pounds): 295 Weight (Calculated Kilograms): 133.517140 Constitutional: AAO x 3, well-developed, well-nourished Respiratory: No accessory muscle use, No respiratory distress; chest expansion is symmetric, chest is bilaterally symmetric, rhonchi, other (diminished throughout) Cardiovascular: regular rate-rhythm Gastrointestional: No tender; soft; No guarding; audible bowel sounds Extremities: no lower extremity edema bilateral Neurologic/Psychiatric: grossly intact (moves all extremities) Skin: No rash on exposed areas, No ulcerations on exposed areas Results/Procedures: Labs Laboratory Tests 06/26/22 05:51: White Blood Count 14.3H, Red Blood Count 4.52, Hemoglobin 13.5, Hematocrit 40, Mean Corpuscular Volume 87, Mean Corpuscular Hemoglobin 30, Mean Corpuscular Hemoglobin Concent 34, Red Cell Distribution Width 14.8H, Platelet Count 347, Mean Platelet Volume 10.6, Sodium Level 139, Potassium Level 3.4L, Chloride Level 99, Carbon Dioxide Level 27, Anion Gap 13, Blood Urea Nitrogen 19H, Creatinine 0.96, Estimat Glomerular Filtration Rate 73, BUN/Creatinine Ratio 20, Glucose Level 155H, Calcium Level 9.8 Laboratory Tests 06/25/22 04:45 06/26/22 05:51 A/P: Assessment: Shortness of breath: Pneumonia vs ac diastolic CHF - Echo on 06/25/22: LVEF 55-60%, grade 1 diastolic dysfunction, mild MR HTN HLD DM 2 ADARSH - non-compliant with CPAP tx Marijuana usage - last usage yesterday Reports h/o TIA in 2016 Exercise stress test [place] [address] Mike - no evidence of ischemia Plan: * Home dose of HCTZ has been resumed * replace potassium * Consider empiric therapy for pneumonia (Med svce) * Adjust meds as needed for bp control * DVT prophylaxis * Monitor labs HILL SMITH Jun 26, 2022 09:13
[2022-06-26 12:00] VITALS: BP 141/100
[2022-06-26] MEDS ORDERED: METF-865 PO (12:41)
[2022-06-26] MEDS ORDERED: PRD10T PO (12:41)
[2022-06-26] MEDS ORDERED: ALBU8.5H6 INH (12:41)
[2022-06-26] MEDS ORDERED: ATOR20TA66 PO (12:41)
[2022-06-26] MEDS ORDERED: LISI1TAB44 PO (12:41)
--- NOTE | 2022-06-26 13:19 | Discharge Summary ---
BIBIANA BRADLEY 06/26/22 1312: Discharge Summary Hospital Course Problems Reviewed?: Yes Problems/Diagnosis: (1) Flash pulmonary edema Status: Acute Assessment & Plan: Chest Xray obtained: cardiomegaly, central dominant pulmonary opacities, aeration mildly improved compared to Chest Xray obtained in [place]. ECHO completed: grade 1 diastolic dysfunction, 55-60% EF, mild mitral reguritati on Patient given solu-medrol, lasix, clonidine, albuterol. Patient reports breathing much improved on this regimen, wanting to get off of the BIPAP. Trialed off of BIPAP. Patient did well on room air, was put back on 2L of oxygen during the night. Was able to ween off of oxygen again today. Will discharge home to self care today. (2) Respiratory failure Status: Acute Assessment & Plan: See above. Qualifiers: Qualified Codes: J96.01 - Acute respiratory failure with hypoxia; J96.02 - Acute respiratory failure with hypercapnia (3) Diabetes mellitus Status: Chronic Assessment & Plan: Patient takes metformin at home. Will continue. Qualifiers: Qualified Codes: E11.9 - Type 2 diabetes mellitus without complications (4) Hypertension Status: Chronic Assessment & Plan: Patient on HCTZ, lisinopril at home. Will continue home meds. Qualifiers: Qualified Codes: I10 - Essential (primary) hypertension (5) Hyperlipidemia Status: Chronic Assessment & Plan: Patient on atorvastatin at home. Qualifiers: Qualified Codes: E78.5 - Hyperlipidemia, unspecified Hospital Course Date of Admission: Jun 25, 2022 at 02:04 Admission Diagnosis : Family Physician/Provider: Hallie Dixon Aprn Date of Discharge: 06/26/22 Discharge Diagnosis: [Flash pulmonary edema] Hospital Course: [Patient was admitted due to respiratory failure and flash pulmonary edema. Patient was started on BIPAP, solu-medrol, albuterol, lasix and potassium. She continued on her home HTN regimen of HCTZ and lisinopril. Patient improved significantly each day on the treatment. ECHO was completed and showed a LVEF of 55-60 and grade 1 diastolic dysfunction, mitral regurigation. Patient is now stable on room air.] Labs and Pending Lab Test: Laboratory Tests 06/26/22 05:51: White Blood Count 14.3H, Red Blood Count 4.52, Hemoglobin 13.5, Hematocrit 40, Mean Corpuscular Volume 87, Mean Corpuscular Hemoglobin 30, Mean Corpuscular Hemoglobin Concent 34, Red Cell Distribution Width 14.8H, Platelet Count 347, Mean Platelet Volume 10.6, Sodium Level 139, Potassium Level 3.4L, Chloride Level 99, Carbon Dioxide Level 27, Anion Gap 13, Blood Urea Nitrogen 19H, Creatinine 0.96, Estimat Glomerular Filtration Rate 73, BUN/Creatinine Ratio 20, Glucose Level 155H, Calcium Level 9.8 Home Meds Active Prednisone 10 Mg Tab 0 PO UD Take 6 tabs (60mg) daily, decrease by 1 tab (10mg) daily. Ventolin Hfa (Albuterol Sulfate) 90 Mcg Hfa.aer.ad 2 Puff INH Q4H PRN 1 PUFF = 90 MCG Metformin HCl ER (Metformin HCl) 500 Mg Tab.er.24h 500 Mg PO 1800 LAST FILLED 04-14-2022 # DAY SUPPLY Atorvastatin Calcium 20 Mg Tablet 20 Mg PO 1800 LAST FILLED 04-14-2022 # DAY SUPPLY Lisinopril-Hctz 10-12.5 mg Tab (Lisinopril/Hydrochlorothiazide) 10 Mg-12.5 Mg Tablet 1 Each PO 1530 Reported Vraylar (Cariprazine Hydrochloride) 3 Mg Capsule 3 Mg PO DAILY LAST FILLED 04-15-2022 # DAY SUPPLY Assessment/Pt DC Instructions Take steroids and inhalers prescribed at discharge. Follow up with your PCP. Contact your physician if you have worsening SOB, chest pain, questions or concerns. Discharge Diet: ADA Diet Activity as Tolerated: Yes Discharge Physical Examination Allergies: Coded Allergies: morphine (Unverified Allergy, Unknown, 07/17/20) Penicillins (Verified Adverse Reaction, Mild, 07/17/20) high fever General Appearance: No Apparent Distress, WD/WN Respiratory: Lungs Clear, Normal Breath Sounds, No Accessory Muscle Use, No Respiratory Distress Cardiovascular: Regular Rate, Rhythm, No Edema, No Gallop, No JVD, No Murmur Gastrointestinal: Normal Bowel Sounds, Non Tender, Soft Extremity: No Calf Tenderness Neurologic/Psychiatric: Alert, Oriented x3, Normal Mood/Affect Discharge Summary Date of Discharge JOSE RAMON SANABRIA MD 06/26/220: Discharge Summary Discharge Physical Examination Allergies: Coded Allergies: morphine (Unverified Allergy, Unknown, 07/17/20) Penicillins (Verified Adverse Reaction, Mild, 07/17/20) high fever Supervisory-Addendum Brief Verification & Attestation Participated in pt care: history, MDM, physical Personally performed: exam, history, MDM, supervision of care Care discussed with: Medical Student Procedures: n/a I did my own history and exam which confirmed that documented by the medical student. I directed the plan of care as documented by the medical student. BIBIANA BRADLEY Jun 26, 2022 13:12 JOSE RAMON SANABRIA MD Jun 26, 2022 18:10
--- NOTE | 2022-06-26 15:22 | Progress Note - Cardiology ---
Cardiology SOAP Progress Note Subjective: No cp or palp or syncope No shortness of breath No leg swelling No weakness or focal weakness No n/v/d Wants to go home Objective: I&O/Vital Signs 06/26/22 06/26/22 06/26/22 06/26/22 04:13 08:00 08:00 08:40 Temp 36.7 35.6 Pulse 89 77 Resp 18 18 B/P (MAP) 123/79 (94) 120/81 (94) Pulse Ox 97 96 96 O2 Delivery Nasal Cannula Nasal Cannula Nasal Cannula Nasal Cannula O2 Flow Rate 2.00 3.00 1.00 2.00 2.00 06/26/22 06/26/22 06/26/22 06/26/22 08:44 11:30 11:31 12:00 Temp 36.4 Pulse 93 Resp 20 B/P (MAP) 141/100 (114) Pulse Ox 98 O2 Delivery Nasal Cannula Nasal Cannula Room Air Room Air O2 Flow Rate 1.00 1.00 0.00 06/26/22 13:33 B/P (MAP) 06/26/22 00:00 Intake Total 1270 ml Output Total 1900 ml Balance -630 ml Weight (Pounds): 295 Weight (Calculated Kilograms): 133.051038 Constitutional: AAO x 3, well-developed, well-nourished Respiratory: No accessory muscle use, No respiratory distress; chest expansion is symmetric, chest is bilaterally symmetric, rhonchi, other (diminished throughout) Cardiovascular: regular rate-rhythm Gastrointestional: No tender; soft; No guarding; audible bowel sounds Extremities: no lower extremity edema bilateral Neurologic/Psychiatric: oriented x 3, other (moves all limbs equally) Skin: No rash on exposed areas, No ulcerations on exposed areas Results/Procedures: Labs Laboratory Tests 06/26/22 05:51: White Blood Count 14.3H, Red Blood Count 4.52, Hemoglobin 13.5, Hematocrit 40, Mean Corpuscular Volume 87, Mean Corpuscular Hemoglobin 30, Mean Corpuscular Hemoglobin Concent 34, Red Cell Distribution Width 14.8H, Platelet Count 347, Mean Platelet Volume 10.6, Sodium Level 139, Potassium Level 3.4L, Chloride Level 99, Carbon Dioxide Level 27, Anion Gap 13, Blood Urea Nitrogen 19H, Creatinine 0.96, Estimat Glomerular Filtration Rate 73, BUN/Creatinine Ratio 20, Glucose Level 155H, Calcium Level 9.8 Laboratory Tests 06/25/22 04:45 06/26/22 05:51 A/P: Assessment: Shortness of breath: Pneumonia vs ac diastolic CHF - Echo on 06/25/22: LVEF 55-60%, grade 1 diastolic dysfunction, mild MR HTN HLD DM 2 ADARSH - non-compliant with CPAP tx Marijuana usage - last usage yesterday Reports h/o TIA in 2016 Exercise stress test [place] [address] Mike - no evidence of ischemia Plan: Recommendations to the Hospitalist service * Replenish K * Ok to d/c from cardiac standpoint * Outpt f/u advised * Advised to return to ER in case of recurrence of symptoms or any new symptoms CASE MONTOYA MD FACP [facility] Jun 26, 2022 15:21
--- NOTE | 2022-06-26 16:19 | Diagnostic Imaging Report ---
EXAMINATION: Chest 2 view HISTORY: Respiratory failure COMPARISON: 06/25/2022 FINDINGS: There is mild edema. There is discoid atelectasis in the mid zones. No pleural effusion or pneumothorax. Heart size is upper limits of normal. IMPRESSION: 1. Mild edema. Dictated by: Dictated on workstation # [id number]
== END 2022-06-26 12:45 | disposition home or self-care (01) | DRG 189 ==
LOC: CSD 06-25 01:30 → INTOOBSV 06-25 01:30 → OBSVTOIN 06-25 02:04 → 4TH 06-25 18:58
PROVIDERS: ADMIT Family Medicine; ATTEND Family Medicine
PROC: 5A09357 Assistance with Respiratory Ventilation, Less than 24 Consecutive Hours, Continuous Positive Airway Pressure (ICD-10-PCS; principal; 2022-06-25)
DX: J96.00 Acute respiratory failure, unspecified whether with hypoxia or hypercapnia (principal); J81.0 Acute pulmonary edema; E11.9 Type 2 diabetes mellitus without complications; E78.5 Hyperlipidemia, unspecified; F12.90 Cannabis use, unspecified, uncomplicated; I10 Essential (primary) hypertension; G47.33 Obstructive sleep apnea (adult) (pediatric); Z79.84 Long term (current) use of oral hypoglycemic drugs; Z79.899 Other long term (current) drug therapy; Z86.73 Personal history of transient ischemic attack (TIA), and cerebral infarction without residual deficits; I34.0 Nonrheumatic mitral (valve) insufficiency
CPT/HCPCS: 36415; 36600; 71045; 71046; 80048; 80053; 82805; 83880; 85025; 85027; 93306; 94640; 94660; 94760; 94761